=== PATIENT | female | born 1960 | race Caucasian/White ===

== ENCOUNTER 2018-08-07 08:40 | Outpatient (CLI) | payer OTHER, SELFPAY | END 2018-08-07 09:00 | PROVIDERS: PCP Nurse Practitioner Family; Visit Provider Internal Medicine Interventional Cardiology | DX: R55 Syncope and collapse (principal); R07.9 Chest pain, unspecified; I48.91 Unspecified atrial fibrillation; I10 Essential (primary) hypertension | CPT/HCPCS: 93005; 93010 ==

== ENCOUNTER 2018-08-09 09:13 | Outpatient (CLI) | payer OTHER, SELFPAY ==
[2018-08-09 12:12] LABS: ALT 31 U/L (12-78); AST 25 U/L (15-37); Albumin 3.4 g/dL (3.4-5.0); Alkaline Phosphatase 93 U/L (46-116); Bilirubin, Total 0.7 mg/dL (0.2-1.0); Cholesterol 149 mg/dL (50-200); HDL Cholesterol 50 mg/dL (40-60); LDL CHOLESTEROL 79 mg/dL (<100); TSH (W/Ref FT4) 2.18 uIU/mL (0.358-3.74); Total Protein 6.3 g/dL (6.4-8.2); Triglyceride 125 mg/dL (30-150)
[2018-08-09 12:18] LABS: Troponin I < 0.02 ng/mL (0.00-0.06)
[2018-08-09 12:29] LABS: Bilirubin, Direct 0.13 mg/dL (0.00-0.20)
== END 2018-08-09 09:33 ==
PROVIDERS: PCP Nurse Practitioner Family; Visit Provider Internal Medicine Interventional Cardiology
DX: R55 Syncope and collapse (principal); I48.91 Unspecified atrial fibrillation; R07.9 Chest pain, unspecified; I10 Essential (primary) hypertension
CPT/HCPCS: 36415; 80061; 80076; 83721; 84443; 84484

== ENCOUNTER 2018-08-16 00:02 | Outpatient (CLI) | payer OTHER, SELFPAY ==
--- NOTE | 2018-08-16 06:33 | MERGEMPI_ITS ---
*[facility]* *[facility]* [address] [place] [address] Myocardial Perfusion Imaging - SPECT Kaden protocol Date of study: 08/16/2018 *PATIENT PRESENTATION* Height: 152.4cm (60in) Blood Pressure: Weight: 84.5kg (186lb) BSA: 1.94m^2 Referring physician: Arun Bustamante Ordering physician: Trent Rios MD Impressions: - Normal myocardial perfusion and contraction after maximal exercise. - Exercise-induced hypertension. Summary: 1. Myocardial perfusion imaging: No myocardial perfusion defects noted. 2. The calculated left ventricular ejection fraction after stress: > 70%. LV global systolic function is normal. No left ventricular regional motion abnormality. 3. Stress ECG conclusions: The stress ECG is negative. The sensitivity of this test is limited by significant motion artifact. 4. Stress: The target heart rate was achieved. The heart rate response to stress is exaggerated. There is a normal resting blood pressure with a hypertensive response to stress. The patient experienced no chest pain during stress. Exercise capacity is average for age (7 METS). Indication: R07.9. History: Patient's presenting symptoms: asymptomatic. Patient's presenting symptoms: asymptomatic. REASON FOR VISIT: EXPERIENCING CHEST DISCOMFORT DESCRIBED WEIRD SENSATION. ONSET AT REST, MAY LAST MINUTES OR HOURS. CHEST DISCOMFORT LAST OCCURED 08/07/18. PATIENT REPORTS AN INCREASED AWARENESS OF HEART SENSATIONS. REPORTS INCREASE IN SHORTNESS OF BREATH DURING ACTIVITY THAT NORMALLY WOULD NOT PRODUCE DYSPNEA, SUCH WALKING. HAS BEEN EXPERIENCING AN INCREASE IN TACHYCARDIA/PALPATIONS. 08/07/18 EKG SHOWS SINUS RHYTHM 84 BPM. ZIO PATCH SYSTEM ANALYST 04/03/2017: BASELINE SINUS RHYTHM. SIX BURST SVT, HR MAX 210 BPM, LONGEST 22.5 SEC. RARE PAC/PVC. STRESS TEST 04/22/2005: NO EKG CHANGES. NORMAL PERFUSION. LVEF 67%. NEGATIVE ISCHEMIA. PAST MEDICAL HISTORY: HYPERTENSION. HYPERLIPIDEMIA. UROLITHIASIS. IBS. ASTHMA. 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 ATRIAL FIBRILLATION/SVT (UNCLEAR HISTORY). GERD. FAMILY HISTORY: SISTER - CEREBROVASCULAR ACCIDENT AND HYPERTENSION. SMOKING STATUS: NEVER. EXERCISE ROUTINE: NONE. Risk factors: Hypertension. Dyslipidemia. Cholesterol: 149mg/dl. HDL: 50mg/dl. LDL: 79mg/dl. Triglycerides: 125mg/dl. ALLERGIES: DILTIAZEM HCL, CODEINE, ESCITALOPRAM OXALATEMEPERIDINE HCL, MORPHINE. MEDICATIONS: ALBUTEROL SULFATE INHALER, PRN. ATORVASTATIN 40MG, DAILY. HYDROCHLOROTHIAZIDE 25MG, DAILY. POTASSIUM CITRATE 30MEQ, BID. MAGNESIUM OXIDE 400MG, DAILY. STARTING APIXABAN 5MG, BID FOLLOWING TESTING. Imaging Technique: Protocol: Kaden protocol. Acquisition: Gated SPECT; 1 day - rest/stress. The patient was imaged in the supine position. Attenuation correction used. Isotope administration: - Rest. Tc[99m]-sestamibi. Dose: 9.9mCi. Injection time: 08:40 AM. Injection to stress time: 00:45. - Stress. Tc[99m]-sestamibi. Dose: 31.4mCi. Injection time: 10:22 AM. 1-2 min before end of exercise Baseline ECG: SINUS RHYTHM. HEART RATE 71 BPM. Normal ECG. Stress protocol: + +---+ + !Stage !HR !BP (mmHg) ! + +---+ + !Baseline supine !71 !142/82 (102) ! + +---+ + !Baseline standing !91 !152/92 (112) ! + +---+ + !Stage I; 1.7mph, 10degrees; 3 min !133!162/102 (122)! + +---+ + !Stage II; 2.5mph, 12degrees; 3 min!160!192/106 (135)! + +---+ + !Peak stress !169! ! + +---+ + !Recovery; 1 min !136!210/82 (125) ! + +---+ + !Recovery; 3 min !100!172/94 (120) ! + +---+ + !Recovery; 6 min !90 !142/86 (105) ! + +---+ + * Stress results: Maximal heart rate during stress was 169bpm (106% of maximal predicted heart rate). The maximal predicted heart rate was 160bpm. The target heart rate was achieved. The heart rate response to stress is exaggerated. There is a normal resting blood pressure with a hypertensive response to stress. The rate-pressure product for the peak heart rate and blood pressure was 36395bh Hg/min. The patient experienced no chest pain during stress. Exercise capacity is average for age (7 METS). Stress ECG: MPI TREADMILL STRESS TEST ENDED IN 6MIN 30SEC DUE TO SHORTNESS OF BREATH AND FATIGUE. APPROPRIATE HEART RATE AND BLOOD PRESSURE RESPONSE TO EXERCISE. MAXIMAL HR 169 BPM, 105% OF TARGET. APPROXIMATE METS ACHIEVED 7.81. NO ECTOPY NOTED. NO ANGINA REPORTED. 3/10 DULL PAIN BETWEEN SHOULDER BLADES REPORTED DURING MINUTE 2 OF RECOVERY, RESOLVED BY MINUTE 4 OF RECOVERY. UPWARD SLOPING ST SEGMENT DEPRESSION NOTED IN LEADS V4 AND V5 AT END OF EXERCISE PERIOD, RESOLVED BY MINUTE 2 OF RECOVERY. AVERAGE FUNCTIONAL CAPACITY. The stress ECG is negative. The sensitivity of this test is limited by significant motion artifact. Lake treadmill score: 7. This score predicts a low risk of cardiac events. Myocardial perfusion: Imaging information: gated. The image quality was good. Left ventricular size is normal. No myocardial perfusion defects noted. Ventricular Function (Wall Motion): The calculated left ventricular ejection fraction after stress: > 70%. LV global systolic function is normal. No left ventricular regional motion abnormality. Study data: Arun Bustamante MD supervised and was readily available during the procedure. This study was interpreted by [facility]. Study status: Routine. Consent: The risks, benefits, and alternatives to the procedure were explained to the patient and informed consent was obtained. Procedure: Initial setup. A baseline ECG was recorded. Surface ECG leads and manual cuff blood pressure measurements were monitored. Heart sounds: Normal. Lung sounds: Normal. Treadmill exercise testing was performed using the Kaden protocol. Study completion: All catheters inserted during the procedure were removed. The patient tolerated the procedure well and was discharged from the lab. Discharge: The patient left the laboratory in stable condition. Birthdate: Patient birthdate: 1960. Sex: Gender: female. Study date: Study date: 08/16/2018. Study time: 06:33 AM. Signature Documentation: - The imaging portion of this study was interpreted by Nuclear Invertebrate Paleontologist Arun Bustamante MD. - The imaging portion of this study was interpreted by Nuclear Radiologist Farzad Yan MD. - The Stress ECG portion of this study was interpreted by Arun Bustamante MD. Electronically signed by Arun Bustamante 08/16/2018 13:44
== END 2018-08-16 00:22 ==
PROVIDERS: PCP Nurse Practitioner Family; Visit Provider Internal Medicine Interventional Cardiology
DX: R07.9 Chest pain, unspecified (principal); R03.0 Elevated blood-pressure reading, without diagnosis of hypertension; R06.02 Shortness of breath; R00.2 Palpitations; I10 Essential (primary) hypertension; E78.5 Hyperlipidemia, unspecified; K21.9 Gastro-esophageal reflux disease without esophagitis
CPT/HCPCS: 78452; 93017

== ENCOUNTER 2018-08-28 09:48 | Outpatient (CLI) | payer OTHER, SELFPAY | END 2018-08-28 10:08 | PROVIDERS: PCP Nurse Practitioner Family; Visit Provider Internal Medicine Interventional Cardiology | DX: I48.0 Paroxysmal atrial fibrillation (principal); R07.9 Chest pain, unspecified; R55 Syncope and collapse; I47.1 Supraventricular tachycardia | CPT/HCPCS: 93005; 93010 ==

== ENCOUNTER 2018-08-31 03:05 | Outpatient (CLI) | payer OTHER, SELFPAY ==
--- NOTE | 2018-09-25 16:36 | ZIOP_ITS ---
DATE OF DICTATION: September 25, [address]: 13 days, 2 hours, August [id number] Baseline rhythm sinus. Rare single PAC. Nine bursts of SVT, longest 10-beat duration, fastest 150 bpm. Rare single PVC, less than 1% of total beat. No VT. No bradycardia or block. Four triggered events occurring during sinus rhythm or SVT. Heart rates up to 150 bpm. Three symptomatic episodes. Fluttering, racing, sharp pain noted during sinus rhythm 58-80 bpm. Average heart rate sinus 77 bpm, range 47-151 bpm.
== END 2018-08-31 03:25 ==
PROVIDERS: PCP Nurse Practitioner Family; Visit Provider Internal Medicine Interventional Cardiology
DX: I48.91 Unspecified atrial fibrillation (principal); I47.1 Supraventricular tachycardia
CPT/HCPCS: 93225

== ENCOUNTER 2018-09-18 00:24 | Emergency (ER) | payer OTHER, SELFPAY ==
[2018-09-18] VITALS (33 sets, daily range): BP systolic 131–165; BP diastolic 66–107; PULSE 69–101; RESP 11–24; TEMP 36.8–37; O2SAT 94–99
--- NOTE | 2018-09-18 00:41 | ED.GENADUL_ITS ---
Discharge Plan Disposition Patient Disposition: HOME Condition: Good Discharge Details Chief Complaint: Palpitatns Clinical Impression: Palpitations, Hypokalemia Primary Care Provider: Makenzie Mccauley ED Provider: Lucy Mendez Home Meds and New Rx's Prescriptions: Continued magnesium oxide 400 mg capsule 400 mg PO DAILY RF: 0 potassium citrate 10 mEq (1,080 mg) tablet extended release 20 meq PO TID RF: 0 ALBUTEROL SULFATE HFA 8.5 GM HFA.AER.AD 2 puff Inhalation Q6H PRN RF: 0 tramadol 50 MG tablet 1 tab PO PRN PRNRF: 0 atorvastatin [Lipitor] 40 MG tablet 40 mg PO DAILY RF: 0 hydrochlorothiazide 25 MG tablet 25 mg PO QAM RF: 0 omeprazole 40 mg Capsule,Delayed Release(Dr/Ec) 40 mg PO DAILY RF: 0 Discharge Instructions Instructions: Palpitations (ED), Hypokalemia (ED) Additional Instructions: Return to the hospital tomorrow morning to have the heart monitor (zio patch) placed by respiratory therapy. Take your potassium citrate as directed when you have low potassium. Discuss with your primary care doctor or cardiology possibility of switching your hydrochlorothiazide to another medication due to your frequent low potassium. Folllow up with your scheduled appointment with Dr. Rios on 10/16/18. Return immediately to the emergency department with any worsening or new concerning symptoms. Discharge Data Discharge Date/Time-TO BE ENTERED AT DEPARTURE: 09/18/18 04:14 Discharge Physician: Lucy Mendez Medical Decision Making 58-year-old female with a history of hypertension, high cholesterol, IBS and asthma with a long-standing history of syncope and palpitations for several years who presents for palpitations that started 4 hours ago while driving. She denies any chest pain, shortness of breath, dizziness, or vomiting. She states the symptoms are improved at present. Pt does seem to admit to sensation of symptoms that correlate with PVCs on the monitor. Heart rate on arrival noted to be 80s and 90s. EKG notes a rate of 98, sinus, no acute ST elevation or depression. QTc 449. QRS 90. Patient has been followed by Dr. Rios for her history of chronic palpitations as well as presyncope and syncope which has been found to be likely neurocardiogenic in nature. She was most recently seen by Dr. Rios on August 28, 2018. She most recently had a stress test on 08/16/2018 which was negative for ischemia. She states she just had a heart monitor for the past 2 weeks which was removed 4 days ago. She states she has a scheduled appointment with Dr. Rios on 10/16/17. Blood pressure 140s/80s. Patient appears nontoxic and in no acute distress. Patient states she was advised to come to the emergency department by Dr. Rios if she develops any recurrence of her palpitations. Patient states her last syncopal episode was 1/2 years ago. Patient states her last episode of palpitations was one month ago. Will do a cardiac workup. Pt admits to driving 7 hours to [place] a few weeks ago but states she got out of the car every 2 hours to walk and she denies any chest pain, sob, leg pain or swelling, recent surgery, h/o cancer, and has no other dvt risk factors. 0120 --labs and imaging reviewed. Potassium 2.8. Troponin negative. D-dimer 568 and based on age adjusted cutoff, is within normal limits. Patient is taking hydrochlorothiazide which is likely the cause of her hypokalemia. Review of previous labs note that she has had hypokalemia in the past. Patient states she takes 4 tabs of potassium citrate daily but when her potassium is low increases to 6 tabs daily. Patient states she also tries to supplement potassium in her diet. Discussed the possibility of switching from hydrochlorothiazide, but she states that she takes this for her history of kidney stones and does not plan on stopping it. Will give an oral and IV dose of potassium, plan for recheck potassium and repeat troponin and plan for zio patch monitor on discharge. 0220 -- d/w Jodie from RT - do not place zio patch in the night - pt can return to the hospital tomorrow morning and have a zio patch placed. 0350 -- repeat K 3.4. Repeat trop negative. Pt feels good and she is requesting to go home. She is instructed to follow-up with her appointment with Dr. Rios on and return here immediately with any concerns. Medical Records Medical records reviewed: Yes I reviewed the patient's medical records. Imaging Data Radiologic Study: Radiologist's impression: XR Chest, 2 Views EXAM DATE/TIME: 09/18/2018 12:40 AM FINDINGS: Lungs: Unremarkable. No consolidation. Pleural space: Unremarkable. No pleural effusion. No pneumothorax. Heart/Mediastinum: Unremarkable. No cardiomegaly. Bones/joints: Disc osteophyte of the spine. IMPRESSION: No acute finding. Lab Data Lab results reviewed: Yes I reviewed the patient's lab results. Laboratory Tests Range/Units 09/18/18 09/18/18 09/18/18 00:37 00:37 00:37 WBC (4.4-10.8) k/cumm 7.64 RBC (4.00-5.20) m/cumm 4.94 Hgb (12.0-15.5) g/dL 14.4 Hct (36.0-46.0) % 41.9 MCV (80-95) fL 84.8 MCH (27.0-33.0) pg 29.1 MCHC (32.0-36.0) g/dL 34.4 RDW (11.7-14.6) % 12.8 Plt Count (130-400) x1000/uL 248 MPV (8.0-11.0) fL 10.5 Immature Gran % 0.1 Neutrophils % 66.4 Lymphocytes % 21.7 Monocytes % 8.9 Eosinophils % 2.5 Basophils % 0.4 Absolute Neutrophils (1.2-6.7) k/cumm 5.07 Absolute Lymphocytes (1.2-3.4) k/cumm 1.66 Absolute Monocytes (0.11-0.7) k/cumm 0.68 Absolute Eosinophils (0.0-0.7) k/cumm 0.19 Absolute Basophils (0.0-0.2) k/cumm 0.03 D-Dimer (<500) ng/mlFEU 568 H Sodium (136-145) mmol/L 142 Potassium (3.5-5.1) mmol/L 2.8 L* Chloride (98-107) mmol/L 102 Carbon Dioxide (21.0-32.0) mmol/L 31.2 Anion Gap (3-11) mmol/L 8.8 BUN (7-18) mg/dL 14 Creatinine (0.55-1.02) mg/dL 0.83 Estimated GFR/1.73 m2 (mL/min/1.73m2) >= 60.00 Glucose (70-100) mg/dL 106 H Calcium (8.5-10.1) mg/dL 9.7 Magnesium (1.8-2.4) mg/dL 1.8 Total Bilirubin (0.2-1.0) mg/dL 0.5 AST (15-37) U/L 26 ALT (12-78) U/L 36 Alkaline Phosphatase (46-116) U/L 109 Troponin I (0.00-0.06) ng/mL < 0.02 Total Protein (6.4-8.2) g/dL 7.4 Albumin (3.4-5.0) g/dL 3.9 Range/Units 09/18/18 03:28 WBC (4.4-10.8) k/cumm RBC (4.00-5.20) m/cumm Hgb (12.0-15.5) g/dL Hct (36.0-46.0) % MCV (80-95) fL MCH (27.0-33.0) pg MCHC (32.0-36.0) g/dL RDW (11.7-14.6) % Plt Count (130-400) x1000/uL MPV (8.0-11.0) fL Immature Gran % Neutrophils % Lymphocytes % Monocytes % Eosinophils % Basophils % Absolute Neutrophils (1.2-6.7) k/cumm Absolute Lymphocytes (1.2-3.4) k/cumm Absolute Monocytes (0.11-0.7) k/cumm Absolute Eosinophils (0.0-0.7) k/cumm Absolute Basophils (0.0-0.2) k/cumm D-Dimer (<500) ng/mlFEU Sodium (136-145) mmol/L 144 Potassium (3.5-5.1) mmol/L 3.4 L Chloride (98-107) mmol/L 107 Carbon Dioxide (21.0-32.0) mmol/L 32.1 H Anion Gap (3-11) mmol/L 4.9 BUN (7-18) mg/dL 12 Creatinine (0.55-1.02) mg/dL 0.70 Estimated GFR/1.73 m2 (mL/min/1.73m2) >= 60.00 Glucose (70-100) mg/dL 100 Calcium (8.5-10.1) mg/dL 8.4 L Magnesium (1.8-2.4) mg/dL Total Bilirubin (0.2-1.0) mg/dL AST (15-37) U/L ALT (12-78) U/L Alkaline Phosphatase (46-116) U/L Troponin I (0.00-0.06) ng/mL 0.02 Total Protein (6.4-8.2) g/dL Albumin (3.4-5.0) g/dL ECG Data Attestation: I personally reviewed and interpreted this ECG (s) as follows: Interpretation: 0031 -- 98bpm. Sinus. No acute ST elevation or depression. QTc 449. QRS 90. HPI General Mode of arrival: ambulatory . Date/Time Provider Initiated Documentation: 09/18/18 00:31 . Limitations to Documentation: no limitations . Information obtained by: patient . HPI Narrative: Patient is a 58-year-old female who presents with palpitations that started 4 hours prior to arrival. States she was driving a car when she felt what she describes as a skip, jump, and a flutter in the center of her chest. She states she was wearing a fit bit and it appeared that her heart was alternating between 90s and 110s. She states she feels much better now and that the symptoms are occurring less frequently. She denies any chest pain, shortness of breath, dizziness, nausea or vomiting. Patient has a long-standing history of palpitations for which she has seen cardiology for several years. She has a long-standing history of syncope over the past 35 years for which she has had multiple cardiac workups including heart monitor, stress test, tilt table test, echo, sleep study. She also had a history of atrial fibrillation found on ER evaluation in 2004 but not since then and has had cardiac monitors which have been negative for fibrillation since then. She denies any recent new medications. She states she drank tea this evening but denies any other new caffeine. She denies any other recent illnesses, fever, vomiting or diarrhea. Related Data Home Medications Medication Instructions Recorded Confirmed Albuterol Sulfate Hfa 2 puff INHALATION Q6H PRN puff NS 12/22/12 09/18/18 tramadol 1 tab PO PRN PRN 08/28/15 09/18/18 atorvastatin [Lipitor] 40 mg PO DAILY 04/03/17 09/18/18 hydrochlorothiazide 25 mg PO QAM tab 04/04/17 09/18/18 magnesium oxide 400 mg capsule 400 mg PO DAILY cap 08/07/18 09/18/18 potassium citrate ER 10 mEq (1,080 20 meq PO TID tab 08/28/18 09/18/18 mg) tablet,extended release omeprazole 40 mg PO DAILY 09/18/18 09/18/18 Previous Rx's Medication Instructions Recorded hydrochlorothiazide 25 mg PO QAM tab 04/04/17 Allergies Allergy/AdvReac Type Severity Reaction Status Date / Time diltiazem HCl [From Cardizem] Allergy Severe Anaphylaxsi Unverified 09/18/18 00:40 s codeine [Codeine] AdvReac Mild nausea.vomi Unverified 09/18/18 00:40 ting escitalopram oxalate AdvReac Mild nausea, Unverified 09/18/18 00:40 [From Lexapro] vomiting meperidine HCl [From Demerol] AdvReac Mild nausea, Unverified 09/18/18 00:40 vomiting morphine AdvReac Mild nausea, Unverified 09/18/18 00:40 vomiting General Stated Complaint: Palpitatns ROSA: 3 Review of Systems Review of Systems All systems reviewed & are unremarkable except as noted in HPI and below Constitutional Reports as per HPI, Denies chills and Denies fever(s) Eyes Denies blurry vision ENT Denies dizziness, Denies sore throat and Denies throat swelling Cardiovascular Denies chest pain, Reports palpitations and Denies dyspnea Respiratory Denies dyspnea Gastrointestinal Denies abdominal pain, Denies diarrhea and Denies vomiting Genitourinary Denies hematuria and Denies dysuria Musculoskeletal Denies back pain and Denies numbness Integumentary/Breasts Denies lesions and Denies rash Neurologic Denies dizziness and Denies numbness Endocrine Reports palpitations Allergic/Immunologic Denies throat swelling [facility] Medical History Hyperlipemia (Acute) Asthma (Chronic) HTN (hypertension) (Chronic) Irritable bowel syndrome (Chronic) Surgical History H/O section (Chronic) History of tonsillectomy (Chronic) Hx of cholecystectomy (Chronic) Social History Smoking/Tobacco Use Status: Never alcohol intake: never substance use type: does not use Exam Const General: cooperative, healthy appearing and no acute distress HENMT Head: normal to inspection Face and sinus: normal facial exam Eyes General: appearance normal, both eyes and all related structures Pupils: PERRL EOM: EOM intact bilaterally Neck Neck: normal visual inspection and No submandibular swelling Lymphatic: no lymphadenopathy noted Chest Chest: normal inspection of the chest and no tenderness Resp Effort & Inspection: normal respiratory effort and able to speak in complete sentences Auscultation: clear to auscultation bilaterally Cardio Rate: regular rate Rhythm: regular rhythm GI Inspection: normal to inspection Palpation: soft, not firm, not rigid and nontender Auscultation: normal bowel sounds Skin General skin exam: no rashes or lesions noted Neuro General: alert, awake and oriented x3 Cognition: normal cognition Speech: speech normal Motor: muscle tone normal throughout Sensory Exam: no sensory deficits noted Extrem General: normal to inspection, full ROM, normal capillary refill, no calf tenderness bilaterally and no edema Psych Appearance: grossly normal Mental Status: mental status grossly normal Speech and Movement: speech and movement normal Affect: normal affect Course Vital Signs Temperature 98.6 F 09/18/18 00:36 Pulse 96 H 09/18/18 00:36 Respiratory Rate 18 18 00:36 Blood Pressure 148/98 H 09/18/18 00:36 Pulse Oximetry 98 09/18/18 00:36 Temperature 98.6 F 09/18/18 00:36 Temperature Source Skin 09/18/18 00:36 Pulse 96 H 09/18/18 00:36 Respiratory Rate 18 18 00:36 Blood Pressure 148/98 H 09/18/18 00:36 Blood Pressure Position Supine 09/18/18 00:36 Pulse Oximetry 98 09/18/18 00:36 Oxygen Delivery Method Room Air 09/18/18 00:36 Oxygen Flow Rate 0 09/18/18 00:36 Pain Level 0 09/18/18 00:36
[2018-09-18 00:57] LABS: Abs Immature Grans 0.01 k/cumm (0.0-0.09); Absolute Basophil Count 0.03 k/cumm (0.0-0.2); Absolute Eosinophil Count 0.19 k/cumm (0.0-0.7); Absolute Lymphocyte Count 1.66 k/cumm (1.2-3.4); Absolute Monocyte Count 0.68 k/cumm (0.11-0.7); Absolute Neutrophil Count 5.07 k/cumm (1.2-6.7); Basophils % 0.4; Eosinophils % 2.5; HCT 41.9 % (36.0-46.0); HGB 14.4 g/dL (12.0-15.5); Immature Grans % 0.1; Lymphocytes % 21.7; Mean Corp. HGB Concentration 34.4 g/dL (32.0-36.0); Mean Corpuscular Hemoglobin 29.1 pg (27.0-33.0); Mean Corpuscular Volume 84.8 fL (80-95); Mean Platelet Volume 10.5 fL (8.0-11.0); Monocytes % 8.9; Neutrophils % 66.4; Platelet Count 248 x1000/uL (130-400); RBC 4.94 m/cumm (4.00-5.20); RBC Distribution Width 12.8 % (11.7-14.6); White Blood Cell Count 7.64 k/cumm (4.4-10.8)
[2018-09-18] MEDS: Normal Saline 1,000 ML 1000 ML IV (01:08)
--- NOTE | 2018-09-18 01:10 | DI.RAD_ITS ---
SYMPTOMS/DIAGNOSIS: PALPITATIONS, ? ACUTE DISEASE PA AND LATERAL CHEST: The heart is normal in size. The lungs are clear. The mediastinal structures and pleura appear intact. CONCLUSION: Normal chest.
[2018-09-18 01:11] LABS: AST 26 U/L (15-37); Albumin 3.9 g/dL (3.4-5.0); Alkaline Phosphatase 109 U/L (46-116); Anion Gap 8.8 mmol/L (3-11); BUN 14 mg/dL (7-18); Bilirubin, Total 0.5 mg/dL (0.2-1.0); CO2 31.2 mmol/L (21.0-32.0); CREATININE 0.83 mg/dL (0.55-1.02); Calcium 9.7 mg/dL (8.5-10.1); Chloride 102 mmol/L (98-107); Glucose 106 mg/dL (70-100); Magnesium 1.8 mg/dL (1.8-2.4); Sodium 142 mmol/L (136-145); Total Protein 7.4 g/dL (6.4-8.2)
[2018-09-18 01:12] LABS: Troponin I < 0.02 ng/mL (0.00-0.06)
[2018-09-18 01:14] LABS: Potassium 2.8 mmol/L (3.5-5.1)
[2018-09-18 01:24] LABS: ALT 36 U/L (12-78)
[2018-09-18 01:27] LABS: D-Dimer 568 ng/mlFEU (<500)
[2018-09-18] MEDS: POTASSIUM CHLORIDE 20 MEQ/100 ML BAG 50 MEQ IVPB (01:30)
[2018-09-18] MEDS: Potassium Chloride 20 MEQ TABCR 40 MEQ PO (01:31)
--- NOTE | 2018-09-18 01:34 | DI.VRAD_ITS ---
EXAM: XR Chest, 2 Views EXAM DATE/TIME: 09/18/2018 12:40 AM CLINICAL HISTORY: 58 years old, female; Signs and symptoms; Other: Palpitations; Patient HX: Palpitations, R/O acute disease TECHNIQUE: XR of the chest, 2 views. COMPARISON: CR CHEST 2 VIEWS PA,LAT 04/03/2017 12:43 PM FINDINGS: Lungs: Unremarkable. No consolidation. Pleural space: Unremarkable. No pleural effusion. No pneumothorax. Heart/Mediastinum: Unremarkable. No cardiomegaly. Bones/joints: Disc osteophyte of the spine. IMPRESSION: No acute finding. Dictated and Authenticated by: Trent Painter MD. Ordering:MEJIA Ayala MD
[2018-09-18 03:50] LABS: Anion Gap 4.9 mmol/L (3-11); BUN 12 mg/dL (7-18); CO2 32.1 mmol/L (21.0-32.0); Calcium 8.4 mg/dL (8.5-10.1); Chloride 107 mmol/L (98-107); Glucose 100 mg/dL (70-100); Potassium 3.4 mmol/L (3.5-5.1); Sodium 144 mmol/L (136-145); Troponin I 0.02 ng/mL (0.00-0.06)
== END 2018-09-18 04:14 | disposition home or self-care (01) ==
PROVIDERS: Emergency Provider Physician Assistant; PCP Nurse Practitioner Family
DX: R00.2 Palpitations (principal); E87.6 Hypokalemia; I10 Essential (primary) hypertension
CPT/HCPCS: 36415; 80048; 80053; 93005; 96361; 96365; 96366; 99285; 71046; 83735; 84484; 85025; 85379; 93010; J3480

== ENCOUNTER 2018-09-18 11:14 | Outpatient (CLI) | payer OTHER, SELFPAY ==
--- NOTE | 2018-10-10 15:26 | ZIOP_ITS ---
DATE OF DICTATION: October 10, 2018 STUDY INDICATIONS: Paroxysmal atrial fibrillation. REQUESTING PROVIDER: Trent Rios M.D. FINDINGS: The patient was monitored for 13 days and 9 hours. The predominant underlying rhythm was sinus rhythm. Average heart rate in sinus rhythm 79 bpm, range 47 to 155 bpm. There was rare ectopy, less than 1% PAC's and less than 1% PVC's. There were 13 episodes of supraventricular tachycardia, average heart rate 128 bpm, range 83 to 179 bpm. The longest episode lasted 9 seconds with an average heart rate of 149 bpm. There were no pauses greater than 3 seconds. There was no higher degree heart block. There were 16 patient events. One event correlated with PVC and one event with PAC. All other events did not correlate with arrhythmias. FINAL INTERPRETATION: Bursts of supraventricular tachycardia, asymptomatic.
== END 2018-09-18 11:34 ==
PROVIDERS: PCP Nurse Practitioner Family; Visit Provider Nurse Practitioner Family
DX: I48.0 Paroxysmal atrial fibrillation (principal); I47.1 Supraventricular tachycardia
CPT/HCPCS: 93225

== ENCOUNTER 2018-11-20 09:50 | Outpatient (REF) | payer OTHER, SELFPAY ==
[2018-11-20 14:08] LABS: Anion Gap 8.7 mmol/L (3-11); CO2 31.3 mmol/L (21.0-32.0); Chloride 106 mmol/L (98-107); Magnesium 1.9 mg/dL (1.8-2.4); Potassium 3.1 mmol/L (3.5-5.1); Sodium 146 mmol/L (136-145)
== END 2018-11-20 10:10 ==
LOC: NCHCN 09:50
PROVIDERS: PCP Nurse Practitioner Family; Visit Provider Nurse Practitioner Family
DX: E78.5 Hyperlipidemia, unspecified (principal); E83.42 Hypomagnesemia; E87.6 Hypokalemia
CPT/HCPCS: 80051; 83735

== ENCOUNTER 2018-12-25 08:44 | Outpatient (CLI) | payer OTHER, SELFPAY | END 2018-12-25 09:04 | PROVIDERS: PCP Nurse Practitioner Family; Visit Provider Internal Medicine Interventional Cardiology | DX: R07.9 Chest pain, unspecified (principal); I48.91 Unspecified atrial fibrillation; R55 Syncope and collapse | CPT/HCPCS: 93005; 93010 ==

== ENCOUNTER 2019-02-15 10:32 | Outpatient (REF) | payer OTHER, SELFPAY ==
[2019-02-15 20:19] LABS: Anion Gap 9.4 mmol/L (3-11); BUN 20 mg/dL (7-18); CO2 29.6 mmol/L (21.0-32.0); CREATININE 0.77 mg/dL (0.55-1.02); Calcium 9.1 mg/dL (8.5-10.1); Chloride 104 mmol/L (98-107); Glucose 99 mg/dL (70-100); Magnesium 1.8 mg/dL (1.8-2.4); Potassium 3.9 mmol/L (3.5-5.1); Sodium 143 mmol/L (136-145)
== END 2019-02-15 10:52 ==
LOC: NCHCN 10:32
PROVIDERS: PCP Nurse Practitioner Family; Visit Provider Nurse Practitioner Family
DX: E83.42 Hypomagnesemia (principal); E87.6 Hypokalemia
CPT/HCPCS: 80048; 83735

== ENCOUNTER 2020-05-09 00:57 | Outpatient (CLI) | payer OTHER, SELFPAY ==
--- NOTE | 2020-06-03 09:20 | ZIOP_ITS ---
Date of service: 06/03/20 Time of Service: 09:20 ZIO Patch Program Director/Music Director Referring Provider:: Albert Indications:: SVT Note: There is a 2-week ZIO patch ordered for indication of supraventricular tachycardia. ?The patient was in normal sinus rhythm for the majority of the recording with an average heart rate of 70 bpm. ?There were 17 episodes of supraventricular tachycardia with the longest lasting 20 beats at a peak rate of 167 bpm. ?There were no episodes of atrial fibrillation, no pauses greater than 3 seconds and no evidence of high degree heart block. ?There were no episodes of ventricular tachycardia. ?There were rare supraventricular and ventricular ectopic beats. ?Patient triggered events were associated with sinus rhythm, supraventricular ectopic beats as well as SVT.
== END 2020-05-09 01:17 ==
PROVIDERS: PCP Nurse Practitioner Family; Visit Provider Internal Medicine Cardiovascular Disease
DX: I47.1 Supraventricular tachycardia (principal); I49.3 Ventricular premature depolarization
CPT/HCPCS: 0296T

== ENCOUNTER 2020-07-29 09:55 | Outpatient (REF) | payer OTHER, SELFPAY ==
--- NOTE | 2020-07-29 08:59 | PAPFT_PTH ---
PATIENT: Catherine Lind LOC: [facility]#:[id number] AGE/SX: 60/F ROOM: RE07/29/[address]: Jackie Victoria : 1960 BED: DIS: 07/29/2020 SPEC #: [id number] RECD: 07/29/20 17:46 STATUS: NICK STANTON #: [id number] CHARITY: 07/29/20 08:[address]: Jackie Victoria DEPT: [facility] Cytology RECD BY: Anna Gutierrez Tissues: 1 - CX/ENDOCX FOR PAP SMEARS Procedures: PAP THIN PREP/[facility] Screening Comments: [id number] ([place])
[2020-07-29 18:46] LABS: HCT 40.3 % (36.0-46.0); HGB 13.1 g/dL (11.2-15.7); MCH 29.2 pg (27.0-33.0); MCHC 32.5 % (32.0-36.0); MCV 89.8 fL (80-95); MPV 11.2 fL (8.0-11.0); Platelet Count 225 10^3/uL (130-400); RBC 4.49 10^6/uL (3.93-5.22); RDW 12.4 % (11.7-14.6); RDW-SD 40.6 fL; WBC 4.46 10^3/uL (4.4-10.8)
[2020-07-29 19:07] LABS: BUN 18 mg/dL (7-18); CREATININE 0.97 mg/dL (0.55-1.02); Calcium 8.8 mg/dL (8.5-10.1); Calculated LDL 96 mg/dL (<100); Chloride 107 mmol/L (98-107); Cholesterol 168 mg/dL (<200); Estimated GFR 58.19 (mL/min/1.73m2); Glucose 105 mg/dL (74-106); HDL Cholesterol 47 mg/dL (40-60); Sodium 142 mmol/L (136-145); TSH (W/Ref FT4) 3.65 uIU/mL (0.36-3.74); Triglyceride 125 mg/dL (<150)
[2020-07-31 04:42] LABS: Vitamin D 25 Total 6.8 ng/ml (30-100)
== END 2020-07-29 10:15 ==
LOC: NCHCN 09:55
PROVIDERS: PCP Nurse Practitioner Family; Visit Provider Nurse Practitioner Family
DX: E83.42 Hypomagnesemia (principal); E78.5 Hyperlipidemia, unspecified; E87.6 Hypokalemia; R53.83 Other fatigue; Z00.00 Encounter for general adult medical examination without abnormal findings; Z12.4 Encounter for screening for malignant neoplasm of cervix; Z11.51 Encounter for screening for human papillomavirus (HPV)
CPT/HCPCS: 80048; 80061; 82306; 85027; 88142; 84443

== ENCOUNTER 2020-08-28 01:11 | Outpatient (CLI) | payer OTHER, SELFPAY ==
--- NOTE | 2020-08-28 08:45 | DI.MAMMO_ITS ---
EXAM: MG MAMMO SCREENING CLINICAL HISTORY: SCREENING,Z12.39. TECHNIQUE: Bilateral full field digital CC and MLO mammographic images were obtained with 3D tomosyn thesis and utilizing computer aided detection (CAD). COMPARISON: Prior mammograms dating back to 2011, the most recent being May 2015. FINDINGS: There are no CAD designations. There are no new dominant masses nor malignant appearing microcalcification groups. There is no new architectural distortion nor skin thickening-retraction. IMPRESSION: No radiographic evidence of malignancy. BI-RADS Category 1 - Negative Breast Density - Category B - Scattered areas of fibroglandular density Breast density Category C or D implies that the patient has dense breast tissue. Dense breast tissue can make it harder to find cancer on a mammogram. Dense breast tissue is also associated with an incr eased risk of breast cancer. This information about the result of the mammogram report was provided to the patient to raise their awareness. Use this report when you speak with the patient about their risks for breast cancer, which includes their family history. At that time, you may recommend additional screening tests (Ultrasoun d or MRI) as these tests may add significant information. A negative radiographic report should not delay biopsy if a dominant or clinically suspicious mass is present. Up to ten percent of cancers are not identified on mammography. A negative report may reinforce clinical impression. Adenosis and dense breasts may obscure an underlying neoplasm. False positive reports average 6 to 10%. Patient will receive a letter notifying them of these results.
== END 2020-08-28 01:31 ==
PROVIDERS: PCP Nurse Practitioner Family; Visit Provider Nurse Practitioner Family
DX: Z12.31 Encounter for screening mammogram for malignant neoplasm of breast (principal)
CPT/HCPCS: 77063; 77067

== ENCOUNTER 2020-09-18 00:06 | Outpatient (CLI) | payer OTHER, SELFPAY ==
--- NOTE | 2020-09-18 | DI.DEXA_ITS ---
EXAM: XR DEXA BONE DENSITY W/WO TONY CLINICAL HISTORY: OSTEOPENIA,M85.80 TECHNIQUE: COMPARISON: Comparison examination 07/10/2015. FINDINGS: Lateral Spine Image: Unremarkable. No compression deformities identified. Left hip: Total T-Score: -1.2. This compares with -0.8 on the prior examination. Total Z-Score: -0.1 T- and Z-scores: Findings consistent with osteopenia and increased fracture risk. Lumbar Spine: Total T-Score: -0.9. This compares with -0.8 on the prior examination. Total Z-Score: 0.7 T- and Z-scores: Within normal limits. IMPRESSION: No evidence of osteoporosis.
== END 2020-09-18 00:26 ==
PROVIDERS: PCP Nurse Practitioner Family; Visit Provider Nurse Practitioner Family
DX: M85.88 Other specified disorders of bone density and structure, other site (principal)
CPT/HCPCS: 77080

== ENCOUNTER 2021-10-08 19:09 | Outpatient (REF) | payer OTHER, SELFPAY ==
[2021-10-08 19:49] LABS: Anion Gap 6.9 mmol/L (3-11); BUN 15 mg/dL (7-18); CO2 30.1 mmol/L (21.0-32.0); CREATININE 0.8 mg/dL (0.55-1.02); Calcium 9.3 mg/dL (8.5-10.1); Chloride 104 mmol/L (98-107); Glucose 135 mg/dL (74-106); Magnesium 1.7 mg/dL (1.8-2.4); Potassium 3.8 mmol/L (3.5-5.1); Sodium 141 mmol/L (136-145)
== END 2021-10-08 19:10 | disposition home or self-care (01) ==
LOC: LBN 19:09
PROVIDERS: PCP Nurse Practitioner Family; Visit Provider Nurse Practitioner Family
DX: E55.9 Vitamin D deficiency, unspecified (principal); E87.6 Hypokalemia; E83.42 Hypomagnesemia
CPT/HCPCS: 80048; 82306; 83735

== ENCOUNTER 2022-05-06 10:21 | Outpatient (REF) | payer OTHER, SELFPAY ==
[2022-05-06 14:53] LABS: HCT 42.1 % (36.0-46.0); HGB 14.2 g/dL (11.2-15.7); MCH 29.3 pg (27.0-33.0); MCHC 33.7 % (32.0-36.0); MCV 87 fL (80-95); MPV 11.5 fL (8.0-11.0); Platelet Count 293 10^3/uL (130-400); RBC 4.85 10^6/uL (3.93-5.22); RDW 12.5 % (11.7-14.6); WBC 6.89 10^3/uL (4.4-10.8)
[2022-05-06 15:14] LABS: Anion Gap 7.1 mmol/L (3-11); BUN 15 mg/dL (7-18); CO2 33.9 mmol/L (21.0-32.0); CREATININE 0.9 mg/dL (0.55-1.02); Calcium 10.1 mg/dL (8.5-10.1); Calculated LDL 76 mg/dL (<100); Chloride 103 mmol/L (98-107); Cholesterol 145 mg/dL (<200); Glucose 109 mg/dL (74-106); HDL Cholesterol 43 mg/dL (40-60); Magnesium 1.7 mg/dL (1.8-2.4); Potassium 3.9 mmol/L (3.5-5.1); Sodium 144 mmol/L (136-145); Triglyceride 132 mg/dL (<150)
== END 2022-05-06 10:22 | disposition home or self-care (01) ==
LOC: NCHCN 10:21
PROVIDERS: PCP Nurse Practitioner Family; Visit Provider Nurse Practitioner Family
DX: E83.42 Hypomagnesemia (principal); E55.9 Vitamin D deficiency, unspecified; E78.5 Hyperlipidemia, unspecified; I10 Essential (primary) hypertension
CPT/HCPCS: 80048; 80061; 85027; 83735

== ENCOUNTER 2022-06-14 09:28 | Outpatient (CLI) | payer OTHER, SELFPAY ==
--- NOTE | 2022-06-14 09:15 | RT.EKG_ITS ---
APPROVED REPORT Exam: Resting ECG Reason for Exam: SVT Patient Location: O HR:74 bpm ECG Measurements Heart Rate 74 AXIS IL 166 P 27 QRSd 86 QRS 4 QT 382 T 26 QTc 424 Conclusion Sinus rhythm...normal P axis, V-rate 50- 99 Normal Electrocardiogram
== END 2022-06-14 09:29 | disposition home or self-care (01) ==
LOC: DI.CARD 09:28
PROVIDERS: PCP Nurse Practitioner Family; Visit Provider Internal Medicine Cardiovascular Disease
DX: I47.1 Supraventricular tachycardia (principal)
CPT/HCPCS: 93010

== ENCOUNTER → 2023-06-16 09:51 | Outpatient (BNVA) | payer MEDICARE, SELFPAY | PROVIDERS: PCP Nurse Practitioner Family; Visit Provider Internal Medicine Cardiovascular Disease | DX: I10 Essential (primary) hypertension (principal); I47.1 Supraventricular tachycardia | CPT/HCPCS: 99213 ==

== ENCOUNTER 2023-10-20 11:10 | Outpatient (REF) | payer MEDICARE, SELFPAY ==
[2023-10-20 15:25] LABS: Abs Immature Grans 0.01 10^3/uL (0.0-0.06); Absolute Basophil Count 0.05 10^3/uL (0.0-0.2); Absolute Eosinophil Count 0.26 10^3/uL (0.0-0.7); Absolute Lymphocyte Count 1.55 10^3/uL (1.2-3.4); Absolute Monocyte Count 0.44 10^3/uL (0.1-0.8); Absolute Neutrophil Count 2.76 10^3/uL (1.2-6.7); Eosinophils % 5.1; HCT 41.4 % (36.0-46.0); HGB 13.8 g/dL (11.2-15.7); Immature Grans % 0.2; Lymphocytes % 30.6; MCH 28.9 pg (27.0-33.0); MCHC 33.3 % (32.0-36.0); MCV 87 fL (80-95); Monocytes % 8.7; Neutrophils % 54.4; Platelet Count 229 10^3/uL (130-400); RBC 4.77 10^6/uL (3.93-5.22); RDW 12.1 % (11.7-14.6); RDW-SD 39.1 fL; WBC 5.07 10^3/uL (4.4-10.8)
[2023-10-20 16:22] LABS: ALT 30 U/L (14-59); AST 20 U/L (15-37); Albumin 3.6 g/dL (3.4-5.0); Alkaline Phosphatase 102 U/L (46-116); Anion Gap 6.2 mmol/L (3-11); BUN 18 mg/dL (7-18); Bilirubin, Total 0.5 mg/dL (0.2-1.0); CO2 30.8 mmol/L (21.0-32.0); CREATININE 0.8 mg/dL (0.55-1.02); Calcium 9.2 mg/dL (8.5-10.1); Calculated LDL 97 mg/dL (<100); Chloride 106 mmol/L (98-107); Cholesterol 177 mg/dL (<200); Estimated GFR 81.72 (mL/min/1.73m2); Glucose 102 mg/dL (74-106); HDL Cholesterol 52 mg/dL (40-60); Potassium 4.1 mmol/L (3.5-5.1); Sodium 143 mmol/L (136-145); TSH 2.77 uIU/mL (0.36-3.74); Total Protein 6.5 g/dL (6.4-8.2); Triglyceride 142 mg/dL (<150); Vitamin B12 246 pg/mL (193-986); Vitamin D 25 Total 12.7 ng/mL (30-100)
== END 2023-10-20 11:11 | disposition home or self-care (01) ==
LOC: NCHCN 11:10
PROVIDERS: PCP Nurse Practitioner Family; Visit Provider Student in an Organized Health Care Education/Training Program
DX: I10 Essential (primary) hypertension (principal); E55.9 Vitamin D deficiency, unspecified; K21.9 Gastro-esophageal reflux disease without esophagitis
CPT/HCPCS: 80053; 80061; 82306; 82607; 84443; 85025

== ENCOUNTER → 2023-11-25 01:04 | Outpatient (CLI) | payer MEDICARE, SELFPAY ==
--- NOTE | 2023-11-25 | DI.US_ITS ---
Exam(s) US RENAL EXAM: US RENAL CLINICAL HISTORY: NEPHROLITHIASIS,N20.0,LOW URINARY TRACT SYMP,R39.9,ASSESS STONES. TECHNIQUE: Cody scale, color and spectral Doppler were used. COMPARISON: US RENAL ULTRASOUND from 06/25/2011 US SOFT TISSUE EXAM from 12/30/2011 CT ABD PELVIS WO CONTRAST from 02/16/2017 FINDINGS: Renal size in cm: Right: 11.2. Left: 9.9. Echogenicity: Normal. Hydronephrosis: Mild dilatation of the left renal collecting system. Cyst or mass: No. Nephrolithiasis: Several echogenic foci seen in the left kidney. The largest is in the superior pole and measures 9 mm. There is also an 8 mm echogenic focus in the upper pole and a 4 mm focus in the lower pole. Other findings: None. Bladder:Normal. Ureteral jets: Right: Visualized and unremarkable. Left: Visualized and unremarkable. Prevoid vol:232 cc Postvoid vol:0 cc Renal color flow: Symmetric and within normal limits. IMPRESSION: 1. Left nephrolithiasis. Mild left hydronephrosis. 2. No sonographic evidence of right nephrolithiasis or hydronephrosis. DATA REPOSITORY:
== END ==
PROVIDERS: PCP Nurse Practitioner Family; Visit Provider Urology
DX: N20.0 Calculus of kidney (principal); N13.30 Unspecified hydronephrosis; R39.89 Other symptoms and signs involving the genitourinary system
CPT/HCPCS: 76770

== ENCOUNTER 2023-11-25 17:44 | Outpatient (REF) | payer MEDICARE, SELFPAY | END 2023-11-25 17:45 | disposition home or self-care (01) | LOC: LBN 17:44 | PROVIDERS: PCP Nurse Practitioner Family; Referring Provider Urology; Visit Provider Urology | DX: R39.9 Unspecified symptoms and signs involving the genitourinary system (principal) | CPT/HCPCS: 87086 ==

== ENCOUNTER → 2023-12-01 02:04 | Outpatient (CLI) | payer MEDICARE, SELFPAY ==
--- NOTE | 2023-12-01 | DI.MAMMO_ITS ---
Exam(s) MAMMO SCREENING EXAM: MAMMO SCREENING CLINICAL HISTORY: SCREENING, Z12.31. TECHNIQUE: Bilateral full field digital CC and MLO mammographic images were obtained with 3D tomosyn thesis and utilizing computer aided detection (CAD). COMPARISON: Prior mammograms were reviewed. FINDINGS: There has been no significant change in the appearance and distribution of the fibroglandular tissue. There are no new spiculated masses nor malignant appearing microcalcification groups. There is no significant architectural distortion nor skin thickening-retraction. IMPRESSION: No radiographic evidence of malignancy. BI-RADS Category 1 - Negative Breast Density - Category B - Scattered areas of fibroglandular density Breast density Category C or D implies that the patient has dense breast tissue. Dense breast tissue can make it harder to find cancer on a mammogram. Dense breast tissue is also associated with an incr eased risk of breast cancer. This information about the result of the mammogram report was provided to the patient to raise their awareness. Use this report when you speak with the patient about their risks for breast cancer, which includes their family history. At that time, you may recommend additional screening tests (Ultrasoun d or MRI) as these tests may add significant information. A negative radiographic report should not delay biopsy if a dominant or clinically suspicious mass is present. Up to ten percent of cancers are not identified on mammography. A negative report may reinforce clinical impression. Adenosis and dense breasts may obscure an underlying neoplasm. False positive reports average 6 to 10%. Patient will receive a letter notifying them of these results.
== END ==
PROVIDERS: PCP Nurse Practitioner Family; Visit Provider Student in an Organized Health Care Education/Training Program
DX: Z12.31 Encounter for screening mammogram for malignant neoplasm of breast (principal)
CPT/HCPCS: 77063; 77067

== ENCOUNTER 2023-12-13 12:16 | Outpatient (REF) | payer MEDICARE, SELFPAY ==
[2023-12-13 16:09] LABS: Vitamin D 25 Total 61.2 ng/mL (30-100)
== END 2023-12-13 12:17 | disposition home or self-care (01) ==
LOC: NCHCN 12:16
PROVIDERS: PCP Nurse Practitioner Family; Visit Provider Student in an Organized Health Care Education/Training Program
DX: E55.9 Vitamin D deficiency, unspecified (principal)
CPT/HCPCS: 82306

== ENCOUNTER 2023-12-14 12:51 | Outpatient (REF) | payer MEDICARE, SELFPAY | END 2023-12-14 12:52 | disposition home or self-care (01) | LOC: NCHCN 12:51 | PROVIDERS: PCP Nurse Practitioner Family; Referring Provider Student in an Organized Health Care Education/Training Program; Visit Provider Student in an Organized Health Care Education/Training Program | DX: R19.5 Other fecal abnormalities (principal) | CPT/HCPCS: 87177 ==

== ENCOUNTER 2024-06-08 14:44 | Outpatient (CLI) | payer MEDICARE, SELFPAY ==
[2024-06-08 14:33] LABS: BUN 20 mg/dL (7-18); CREATININE 0.9 mg/dL (0.55-1.02); Calcium 9.3 mg/dL (8.5-10.1); Chloride 102 mmol/L (98-107); Estimated GFR 70.51 (mL/min/1.73m2); Glucose 122 mg/dL (74-106); Magnesium 1.8 mg/dL (1.8-2.4); Potassium 3.6 mmol/L (3.5-5.1); Sodium 142 mmol/L (136-145); Vitamin D 25 Total 33.4 ng/mL (30-100)
== END 2024-06-08 14:45 | disposition home or self-care (01) ==
LOC: LBO 14:48
PROVIDERS: PCP Nurse Practitioner Family; Visit Provider Student in an Organized Health Care Education/Training Program
DX: E55.9 Vitamin D deficiency, unspecified (principal); Z87.442 Personal history of urinary calculi
CPT/HCPCS: 36415; 80048; 82306; 83735

== ENCOUNTER → 2024-06-14 10:03 | Outpatient (BNVA) | payer MEDICARE, SELFPAY | PROVIDERS: PCP Nurse Practitioner Family; Visit Provider Internal Medicine Cardiovascular Disease | DX: I47.10 Supraventricular tachycardia, unspecified (principal) | CPT/HCPCS: 99213 ==

== ENCOUNTER 2024-09-06 13:12 | Emergency (ER) | payer MEDICARE, SELFPAY ==
[2024-09-06 13:17] VITALS: BP 176/78; PULSE 91; RESP 18; TEMP 37.1; O2SAT 98
[2024-09-06 13:58] LABS: Abs Immature Grans 0.02 10^3/uL (0.0-0.06); Absolute Basophil Count 0.03 10^3/uL (0.0-0.2); Absolute Eosinophil Count 0.12 10^3/uL (0.0-0.7); Absolute Lymphocyte Count 1.25 10^3/uL (1.2-3.4); Absolute Monocyte Count 0.44 10^3/uL (0.1-0.8); Absolute Neutrophil Count 5.68 10^3/uL (1.2-6.7); Basophils % 0.4 %; Eosinophils % 1.6 %; HCT 40.6 % (36.0-46.0); HGB 13.4 g/dL (11.2-15.7); Immature Grans % 0.3 %; Lymphocytes % 16.6 %; MCH 29.1 pg (27.0-33.0); MCV 88 fL (80-95); MPV 10.1 fL (8.0-11.0); Monocytes % 5.8 %; Neutrophils % 75.3 %; Platelet Count 261 10^3/uL (130-400); RDW-SD 38.3 fL; WBC 7.54 10^3/uL (4.4-10.8)
[2024-09-06] MEDS: Normal Saline - Diluent 50 ML VIAL IJ (14:04)
[2024-09-06] MEDS: Omnipaque 350 MG/ML 100 ML BTL IJ (14:05)
--- NOTE | 2024-09-06 14:07 | DI.CT_ITS ---
Exam(s) CT ABDOMEN PELVIS W EXAM: CT ABDOMEN PELVIS W CLINICAL HISTORY: L. flank and RLQ abd pain, hx stones and IBS. TECHNIQUE: Imaging Protocol: Axial computed tomography images with coronal and sagittal reformatted images were created and reviewed CONTRAST MATERIAL: Intravenous: Omnipaque 350 Contrast volume:75 ml Oral: no COMPARISON: CT ABD PELVIS WO CONTRAST from 02/16/2017 FINDINGS: ABDOMEN and PELVIS: Lung Bases: No acute findings. Liver: Normal density. No suspicious mass. Gallbladder and biliary tract: Status post cholecystectomy. no biliary dilation. Pancreas: Normal density. No abnormal calcifications or inflammatory process. No evidence of mass. Spleen: Normal. Kidneys: Normal size, contour and axis. Two nonobstructing stones in the right kidney. No obstructi ve uropathy. No suspicious masses seen. Adrenal glands: No masses seen. Vasculature: Abdominal aorta non-dilated. Atherosclerotic changes. Soft tissues: Unremarkable. Bladder: No gross wall thickening. No calculi.No focal mass. Bowel: No obstruction. Diverticulosis. Wall thickening of the mid sigmoid and surrounding inflamma tion consistent with diverticulitis. Appendix normal. Peritoneal cavity: No ascites. No focal collection. Mesenteric inflammatory response surrounding th e mid sigmoid. No free air. Bones: Unremarkable for age. Reproductive organs: Unremarkable. Lymph nodes: No pathologically enlarged lymph nodes. IMPRESSION:: Mild sigmoid diverticulitis. Findings called to Dr. Ang of the emergency department. RADIATION DOSE DELIVERED: Total DLP DATA REPOSITORY: All CT scans at this facility are submitted to the National Radiology Data Registry (NRDR) Dose Index Registry (DIR) with the [employer] (A[employer]). RADIATION OPTIMIZATION: All CT scans at this facility use at least one of these dose optimization te chniques: automated exposure control; mA and/or kV adjustment per patient size (includes targeted exa ms where dose is matched to clinical indication); or iterative reconstruction.
[2024-09-06 14:10] LABS: Lipase 30 U/L (<78)
[2024-09-06 14:12] LABS: Bilirubin Negative (Negative); Blood Negative (Negative); Clarity Clear (Clear); Glucose Negative (Negative); Ketones Negative (Negative); Leukocyte Esterase Negative (Negative); Nitrite Negative (Negative); Urobilinogen 0.2 mg/dL (Up to 0.2)
[2024-09-06 14:20] LABS: ALT 37 U/L (14-59); AST 24 U/L (15-37); Albumin 3.6 g/dL (3.4-5.0); Alkaline Phosphatase 142 U/L (46-116); Anion Gap 7.9 mmol/L (3-11); BUN 9 mg/dL (7-18); Bilirubin, Total 0.46 mg/dL (0.2-1.0); CO2 32.1 mmol/L (21.0-32.0); CREATININE 0.9 mg/dL (0.55-1.02); Calcium 9.8 mg/dL (8.5-10.1); Chloride 103 mmol/L (98-107); Estimated GFR 70.51 (mL/min/1.73m2); Glucose 129 mg/dL (74-106); Magnesium 1.8 mg/dL (1.8-2.4); Potassium 3.7 mmol/L (3.5-5.1); Sodium 143 mmol/L (136-145); Total Protein 7.4 g/dL (6.4-8.2)
[2024-09-06 14:21] VITALS: BP 146/77; PULSE 80; RESP 18; TEMP 36; O2SAT 98
--- NOTE | 2024-09-06 14:43 | ED.GENADUL_ITS ---
Discharge Plan Disposition Patient Disposition: Home Condition: Stable Discharge Details Clinical Impression: Diverticulitis of sigmoid colon Primary Care Provider: LYRIC TORRES ED Provider: Susan Ang Home Meds and New Rx's Prescriptions: New amoxicillin-pot clavulanate 875-125 mg tablet 1 tab PO Q8H 4 Days Qty: 12 0RF No Action meclizine 25 mg tablet 25 mg PO DAILY PRN potassium chloride [Klor-Con] 20 mEq packet 20 meq PO DAILY hydrochlorothiazide 25 mg tablet 25 mg PO QAM Qty: 90 3RF magnesium oxide 400 mg capsule 400 mg PO DAILY potassium citrate 10 mEq (1,080 mg) tablet extended release 30 meq PO BID Patient Comments: 12/25/18-pt reports her PCP wants to increase to 30 mEq PO QD but she has not increased her medication yet. mecobalamin (vitamin B12) 1,000 mcg lozenge 1,000 mcg PO DAILY Rx Instructions: allow to dissolve in mouth OR may chew lightly before swallowing cholecalciferol (vitamin D3) 1,250 mcg (50,000 unit) capsule 1,250 mcg PO QWEEK lisinopril 5 mg tablet 5 mg PO DAILY Qty: 90 6RF metoprolol succinate 25 mg tablet extended release 24 hr 25 mg PO DAILY Qty: 90 6RF ALBUTEROL SULFATE HFA 8.5 GM HFA.AER.AD 2 puff Inhalation Q6H PRN atorvastatin [Lipitor] 40 MG tablet 40 mg PO DAILY tamsulosin 0.4 mg capsule 0.4 mg PO DAILY PRN omeprazole 40 mg Capsule,Delayed Release(Dr/Ec) 40 mg PO DAILY Discharge Instructions Instructions: Diverticulitis (DC) Additional Instructions: You were seen in the emergency department today for evaluation of abdominal and flank pain and were found to have diverticulitis. In our department you had a full physical examination performed, had laboratory studies that were reassuring and had a CT scan that showed no other concerning findings besides the diverticulitis. I have started you on a medication called Augmentin, which you will take 3 times per day for a total of 5 days. You received your first dose here in the emergency department, as well as 2 doses to take home with you. The remaining 4 days are at the pharmacy, and you should take all this medication until it is gone, even if you start to feel better. You need to follow-up with your primary care provider for reassessment, and may benefit from a liquid diet for the next few days for your bowel rest. Thank you for allowing us to be part of your care. HPI General Mode of arrival: ambulatory . Date/Time Provider Initiated Documentation: 09/06/24 13:26 . Limitations to Documentation: no limitations . Information obtained by: patient and old records reviewed . HPI Narrative: HPI: This is a 64-year-old female patient with a past medical history significant for hyperlipidemia, hypertension, and renal stones, presenting for evaluation of right flank and right lower quadrant abdominal pain. Patient reports that she has had this pain since Tuesday, states that initially she thought it was her kidney stone and started taking Flomax. However, the pain now over stretches across her lower abdomen, and this is very different than her prior episodes of renal colic. She states that she developed nausea today, prompting her presentation to care. She did take some Zofran in the home environment to good effect. The patient has not noted any fevers, diarrhea, dysuria. Exam: Gen: Awake and alert, in no apparent distress HEENT: Non-icteric sclera Neck: Supple Lungs: No apparent respiratory distress, normal respiratory effort. CV: Appears well perfused, strong distal pulses Abdomen: Non-distended, soft, nontender to palpation without rigidity, rebound, or guarding. She does note that her tenderness is located in her right pelvic region, no bulging or hernia sacs palpable MSK: Moves 4 extremities without apparent limitation in ROM Skin: Visualized skin without rashes, cyanosis. Neuro: Normal Gait, no obvious focal deficits or facial asymmetry. Speaks in full, clear sentences. Psych: Appropriate for situation. MDM: This is a 64-year-old female patient presenting for evaluation of flank and abdominal pain. Differential includes but is not limited to nephrolithiasis, pyelonephritis/UTI, and I certainly considered other intra-abdominal abnormalities including appendicitis, diverticulitis, ovarian cyst, aortic pathology, mesenteric ischemia, pancreatitis, hepatitis, cholecystitis, gastroenteritis, bowel obstruction. I had a shared decision-making conversation with the patient, and do believe that she would benefit from CT imaging to better characterize any abnormalities that might account for her pain. This will be done with contrast given the broad differential. I will obtain laboratory studies to include CBC, CMP, lipase, urinalysis. ED Course: I independently interpreted the laboratory studies, which show no significant leukocytosis, anemia, or thrombocytopenia. The chemistry panel is without evidence of electrolyte abnormality, kidney dysfunction, or liver injury. Lipase is low and the UA is noninfectious and without hematuria. Independently reviewed the patient's CT scan and discussed the findings with the radiologist, which shows uncomplicated sigmoid diverticulitis. On reassessment, the patient reports that her symptoms have improved, she was able to tolerate p.o., and I did discuss with her the use of a liquid diet for management of diverticulitis symptoms. Given the duration of symptoms I do feel that it is reasonable to proceed with antibiosis, and provided her with a prescription for Augmentin to be taken every 8 hours for the next 5 days. At this time, the patient has had a full medical evaluation and is safe for discharge to home. They are hemodynamically stable, ambulatory, and tolerating PO. They are understanding of the follow-up plan and return precautions. They left our facility without incident. Susan Ang MD Related Data Home Medications ?Medication ?Instructions ?Recorded ?Confirmed Albuterol Sulfate Hfa 2 puff inhalation Q6H PRN 12/22/12 09/06/24 atorvastatin 40 mg tablet (Lipitor) 40 mg PO DAILY 04/03/17 09/06/24 magnesium oxide 400 mg PO DAILY 08/07/18 09/06/24 omeprazole 40 mg capsule,delayed 40 mg PO DAILY 09/18/18 09/06/24 release potassium citrate 10 mEq (1,080 30 meq PO BID 04/30/19 09/06/24 mg) tablet,extended release meclizine 25 mg tablet 25 mg PO DAILY PRN 06/15/21 09/06/24 potassium chloride 20 mEq oral 20 meq PO DAILY 06/14/22 09/06/24 packet (Klor-Con) hydrochlorothiazide 25 mg tablet 25 mg PO QAM #90 tabs 06/16/23 09/06/24 cholecalciferol (vitamin D3) 1,250 1,250 mcg PO QWEEK 06/14/24 09/06/24 mcg (50,000 unit) capsule lisinopril 5 mg tablet 5 mg PO DAILY #90 tabs 06/14/24 09/06/24 mecobalamin (vitamin B12) 1,000 1,000 mcg PO DAILY 06/14/24 09/06/24 mcg lozenges metoprolol succinate 25 mg 25 mg PO DAILY #90 tabs 06/14/24 09/06/24 tablet,extended release 24 hr amoxicillin 875 mg-potassium 1 tab PO Q8H 4 days #12 tabs 09/06/24 clavulanate 125 mg tablet tamsulosin 0.4 mg capsule 0.4 mg PO DAILY PRN 09/06/24 09/06/24 Previous Rx's ?Medication ?Instructions ?Recorded hydrochlorothiazide 25 mg tablet 25 mg PO QAM #90 tabs 06/16/23 lisinopril 5 mg tablet 5 mg PO DAILY #90 tabs 06/14/24 metoprolol succinate 25 mg 25 mg PO DAILY #90 tabs 06/14/24 tablet,extended release 24 hr amoxicillin 875 mg-potassium 1 tab PO Q8H 4 days #12 tabs 09/06/24 clavulanate 125 mg tablet Allergies Allergy/AdvReac Type Severity Reaction Status Date / Time diltiazem HCl (From Cardizem) Allergy Severe Anaphylaxsi Verified 09/06/24 13:20 s codeine (Codeine) AdvReac Mild nausea.vomi Verified 09/06/24 13:20 ting escitalopram oxalate (From AdvReac Mild nausea, Verified 09/06/24 13:20 Lexapro) vomiting meperidine HCl (From Demerol) AdvReac Mild nausea, Verified 09/06/24 13:20 vomiting morphine AdvReac Mild nausea, Verified 09/06/24 13:20 vomiting General Stated Complaint: FlankPain ROSA: 3 Course Vital Signs Vital signs: Vital Signs Temperature 37.1 C 09/06/24 13:17 Pulse 91 H 09/06/24 13:17 Respiratory Rate 18 09/06/24 13:17 Blood Pressure 176/78 H 09/06/24 13:17 Pulse Oximetry 98 09/06/24 13:17 Temperature 36 C L 09/06/24 14:21 Temperature Source Temporal Artery Scan 09/06/24 14:21 Pulse 80 09/06/24 14:21 Respiratory Rate 18 09/06/24 14:21 Respiratory Effort Normal, Non-Labored 09/06/24 14:03 Blood Pressure 146/77 H 09/06/24 14:21 Blood Pressure Position Sitting 09/06/24 14:21 Pulse Oximetry 98 09/06/24 14:21 Oxygen Delivery Method Room Air 09/06/24 14:21 Pain Level 3 09/06/24 13:17 Lab/Test Results Lab/Test Results: Laboratory Tests Range/Units 09/06/24 09/06/24 13:52 13:59 WBC (4.4-10.8) 10^3/uL 7.54 RBC (3.93-5.22) 10^6/uL 4.60 Hgb (11.2-15.7) g/dL 13.4 Hct (36.0-46.0) % 40.6 MCV (80-95) fL 88 MCH (27.0-33.0) pg 29.1 MCHC (32.0-36.0) % 33.0 RDW (11.7-14.6) % 12.0 Plt Count (130-400) 10^3/uL 261 MPV (8.0-11.0) fL 10.1 Immature Gran % % 0.3 Neutrophils % % 75.3 Lymphocytes % % 16.6 Monocytes % % 5.8 Eosinophils % % 1.6 Basophils % % 0.4 Nucleated RBC % (0.0-0.3) % 0.0 Absolute Neutrophils (1.2-6.7) 10^3/uL 5.68 Absolute Lymphocytes (1.2-3.4) 10^3/uL 1.25 Absolute Monocytes (0.1-0.8) 10^3/uL 0.44 Absolute Eosinophils (0.0-0.7) 10^3/uL 0.12 Absolute Basophils (0.0-0.2) 10^3/uL 0.03 Sodium (136-145) mmol/L 143 Potassium (3.5-5.1) mmol/L 3.7 Chloride (98-107) mmol/L 103 Carbon Dioxide (21.0-32.0) mmol/L 32.1 H Anion Gap (3-11) mmol/L 7.9 BUN (7-18) mg/dL 9 Creatinine (0.55-1.02) mg/dL 0.9 Est GFR (CKD-EPI 2020) (mL/min/1.73m2) 70.51 Glucose (74-106) mg/dL 129 H Calcium (8.5-10.1) mg/dL 9.8 Magnesium (1.8-2.4) mg/dL 1.8 Total Bilirubin (0.2-1.0) mg/dL 0.46 AST (15-37) U/L 24 ALT (14-59) U/L 37 Alkaline Phosphatase (46-116) U/L 142 H Total Protein (6.4-8.2) g/dL 7.4 Albumin (3.4-5.0) g/dL 3.6 Lipase (<78) U/L 30 Urine Color (Yellow) Yellow Urine Clarity (Clear) Clear Urine pH (5-8) 7.0 Ur Specific [place] (1.005-1.025) 1.010 Urine Protein (Neg-Trace) mg/dL Negative Urine Ketones (Negative) mg/dL Negative Urine Blood (Negative) Negative Urine Nitrite (Negative) Negative Urine Bilirubin (Negative) Negative Urine Urobilinogen (Up to 0.2) mg/dL 0.2 Ur Leukocyte Esterase (Negative) Negative Urine Glucose (Negative) mg/dL Negative Medical Decision Making Quality:SDOH Health Related Social Needs: No Data to Display PFSH All Active Problems (Updated 09/06/24 @ 14:43 by Susan Ang MD) Diverticulitis of sigmoid colon (Acute) Supraventricular tachycardia (Chronic) Medical History (Updated 09/06/24 @ 14:43 by Susan Ang MD) Irritable bowel syndrome HTN (hypertension) Hyperlipemia Asthma Surgical History H/O section Hx of cholecystectomy History of tonsillectomy Social History Smoking/Tobacco Use Status: Never Smoking risk assessment performed?: Yes Alcohol Intake: never Drug use: Never Substance use type: does not use Do you feel safe in your relationship?: Yes
[2024-09-06] MEDS: Amox. 875/Clav. 125, 2 TABS/BTL 1 TAB PO (14:53)
[2024-09-06] MEDS: Amoxicillin 875/Clav. 125 TAB PO (14:54)
[2024-09-06 15:03] VITALS: BP 113/49; PULSE 73; RESP 18; O2SAT 97
== END 2024-09-06 15:07 | disposition home or self-care (01) ==
PROVIDERS: Emergency Provider Emergency Medicine; PCP Nurse Practitioner Family
DX: K57.32 Diverticulitis of large intestine without perforation or abscess without bleeding (principal); I10 Essential (primary) hypertension; E78.5 Hyperlipidemia, unspecified
CPT/HCPCS: 36415; 80053; 83690; 99285; 74177; 81003; 83735; 85025; 99284; J3490

== ENCOUNTER 2024-11-29 01:49 | Outpatient (CLI) | payer MEDICARE, SELFPAY ==
--- NOTE | 2024-11-29 | DI.DEXA_ITS ---
Exam(s) XR DEXA BONE DENSITY W/WO TONY EXAM: XR DEXA BONE DENSITY W/WO TONY CLINICAL HISTORY: Z78.0 Asymptomatic menopausal state TECHNIQUE: H[employer] Horizon C densitometer analysis of left hip, lumbar spine and left forearm. Lat eral survey image of the thoracic and lumbar spine. COMPARISON: DX DEXA BONE DENSITY WITH TONY from 09/11/2010 DX DEXA BONE DENSITY WITH TONY from 07/10/2015 CR XR DEXA BONE DENSITY W/WO TONY from 09/18/2020 FINDINGS: Lateral view of the thoracic and lumbar spine shows no evidence of compression fractures. Bone mineral density measurements of the lumbar spine correspond to a total T-score of -0.8, in the normal range. Not significantly changed from 2019. 5.3 percent decrease from 2010 baseline exam. Bone mineral density measurements of the left hip correspond to a total T-score of -1.5. This repre sents a 4.4 percent decrease compared with 2019 and 18.2 percent decrease compared with 2009. The fe moral neck T-score is -2.2, in the osteopenic range.. Theleft forearm bone mineral density measurements correspond to a T-score of the distal 3rd of -2.8, in the osteoporotic range. This represents a 6 percent decrease from 2020 and a 23.1 percent decrea se compared with 2009. IMPRESSION: Normal bone density of the lumbar spine. Osteopenia of the hip. Osteoporosis of the forearm.
== END 2024-11-29 02:09 ==
LOC: DI 01:49
PROVIDERS: PCP Nurse Practitioner Family; Visit Provider Student in an Organized Health Care Education/Training Program
DX: Z78.0 Asymptomatic menopausal state (principal); Z13.820 Encounter for screening for osteoporosis; M81.0 Age-related osteoporosis without current pathological fracture
CPT/HCPCS: 77080

== ENCOUNTER 2025-04-12 15:51 | Outpatient (CLI) | payer MEDICARE, SELFPAY ==
[2025-04-12 11:41] LABS: Vitamin D 25 Total 33 ng/mL (30-100)
== END 2025-04-12 15:52 | disposition home or self-care (01) ==
LOC: LBO 15:52
PROVIDERS: PCP Nurse Practitioner Family; Visit Provider Student in an Organized Health Care Education/Training Program
DX: M81.0 Age-related osteoporosis without current pathological fracture (principal)
CPT/HCPCS: 36415; 82306; 82310

== ENCOUNTER 2025-06-27 08:35 | Outpatient (CLI) | payer MEDICARE, SELFPAY ==
--- NOTE | 2025-06-27 08:30 | RT.EKG_ITS ---
APPROVED REPORT Exam: Resting ECG Reason for Exam: evluate cardiac status Patient Location: O HR:72 bpm ECG Measurements Heart Rate 72 AXIS MD 159 P 22 QRSd 78 QRS 1 QT 398 T 39 QTc 436 Conclusion Sinus rhythm...normal P axis, V-rate 50- 99 Baseline wander in lead(s) V2 Normal Electrocardiogram
== END 2025-06-27 08:36 | disposition home or self-care (01) ==
LOC: DI.CARD 08:35
PROVIDERS: PCP Nurse Practitioner Family; Visit Provider Internal Medicine Cardiovascular Disease
DX: I10 Essential (primary) hypertension (principal)
CPT/HCPCS: 93010

== ENCOUNTER → 2025-06-27 10:08 | Outpatient (BNVA) | payer MEDICARE, SELFPAY | PROVIDERS: PCP Nurse Practitioner Family; Visit Provider Internal Medicine Cardiovascular Disease | DX: I47.10 Supraventricular tachycardia, unspecified (principal); I10 Essential (primary) hypertension; Z79.811 Long term (current) use of aromatase inhibitors; Z79.899 Other long term (current) drug therapy | CPT/HCPCS: 99214; 93005 ==

== ENCOUNTER 2025-08-11 18:02 | Emergency (ER) | payer MEDICARE, SELFPAY ==
[2025-08-11] VITALS (13 sets, daily range): BP systolic 144–191; BP diastolic 74; PULSE 58–74; RESP 13–21; TEMP 36.5; O2SAT 95–98
--- NOTE | 2025-08-11 18:10 | W.ED.GENAD ---
Discharge Plan Disposition Patient Disposition: Home Condition: Stable Discharge Details Clinical Impression: Right ureteral stone Primary Care Provider: LYRIC TORRES ED Provider: Alessandro Ely Home Meds and New Rx's Prescriptions: New tamsulosin 0.4 mg capsule 0.4 mg PO DAILY Qty: 30 0RF ketorolac 10 mg tablet 10 mg PO QID 5 Days Qty: 20 0RF Rx Instructions: maximum total duration of 5 days from all oral, intranasal, or parenteral formulations Continued meclizine 25 mg tablet 25 mg PO DAILY PRN potassium chloride [Klor-Con] 20 mEq packet 20 meq PO DAILY hydrochlorothiazide 25 mg tablet 25 mg PO QAM Qty: 90 3RF magnesium oxide 400 mg capsule 400 mg PO DAILY potassium citrate 10 mEq (1,080 mg) tablet extended release 30 meq PO BID Patient Comments: 12/25/18-pt reports her PCP wants to increase to 30 mEq PO QD but she has not increased her medication yet. mecobalamin (vitamin B12) 1,000 mcg lozenge 1,000 mcg PO DAILY Rx Instructions: allow to dissolve in mouth OR may chew lightly before swallowing cholecalciferol (vitamin D3) 1,250 mcg (50,000 unit) capsule 1,250 mcg PO QWEEK metoprolol succinate 25 mg tablet extended release 24 hr 25 mg PO DAILY Qty: 90 6RF lisinopril 5 mg tablet 5 mg PO DAILY Qty: 90 6RF ALBUTEROL SULFATE HFA 8.5 GM HFA.AER.AD 2 puff Inhalation Q6H PRN atorvastatin [Lipitor] 40 MG tablet 40 mg PO DAILY omeprazole 40 mg Capsule,Delayed Release(Dr/Ec) 40 mg PO DAILY Discharge Instructions Instructions: Ketorolac (Systemic), Tamsulosin, Kidney Stone, Adult ED Additional Instructions: You were seen in the emergency department for your 4 mm right ureteral stone, your urine is uninfected and your labs are reassuring for no sign of systemic illness, take 1000 mg of Tylenol every 8 hours as you are over 65 your daily maximum is 3000 mg. Take the prescribed Toradol every 6 hours for pain relief, take the tamsulosin once daily, stay well-hydrated, purchase [id number] AZO to help numb the urethra. Follow-up with urology, return for any signs of urinary obstruction or worsening systemic illness like fever, nausea. Stand Alone Forms: Portal Information Referrals: LYRIC TORRES NP [Primary Care Provider, Medicine] HPI General Date/Time Provider Initiated Documentation: 08/11/25 18:10. HPI Narrative: 65 year-old female presents to ED today by POV/ambulating with a chief complaint of RLQ abdominal pain with onset 1.5 weeks ago. Quality described as aching pain - known history of renal stones, as well as an atypical episode of diverticulitis with R-sided pain in the past, no radiation to nausea/vomiting, fever, cough, chest pain, shortness of breath, dysuria, constipation. Severity is described as 5/10. Palliating factors include nothing specific attempted. Provoking factors include nothing specific. Patient not anticoagulated. Related Data Home Medications Medication Instructions Recorded Confirmed Albuterol Sulfate Hfa 2 puff inhalation Q6H PRN 12/22/12 08/11/25 atorvastatin 40 mg tablet (Lipitor) 40 mg PO DAILY 04/03/17 08/11/25 magnesium oxide 400 mg PO DAILY 08/07/18 08/11/25 omeprazole 40 mg capsule,delayed 40 mg PO DAILY 09/18/18 08/11/25 release potassium citrate 10 mEq (1,080 30 meq PO BID 04/30/19 08/11/25 mg) tablet,extended release meclizine 25 mg tablet 25 mg PO DAILY PRN 06/15/21 08/11/25 potassium chloride 20 mEq oral 20 meq PO DAILY 06/14/22 08/11/25 packet (Klor-Con) hydrochlorothiazide 25 mg tablet 25 mg PO QAM #90 tabs 06/16/23 08/11/25 cholecalciferol (vitamin D3) 1,250 1,250 mcg PO QWEEK 06/14/24 08/11/25 mcg (50,000 unit) capsule mecobalamin (vitamin B12) 1,000 1,000 mcg PO DAILY 06/14/24 08/11/25 mcg lozenges lisinopril 5 mg tablet 5 mg PO DAILY #90 tabs 06/27/25 08/11/25 metoprolol succinate 25 mg 25 mg PO DAILY #90 tabs 06/27/25 08/11/25 tablet,extended release 24 hr ketorolac 10 mg tablet 10 mg PO QID 5 days #20 tabs 11/16/25 tamsulosin 0.4 mg capsule 0.4 mg PO DAILY #30 caps 08/11/25 Previous Rx's Medication Instructions Recorded hydrochlorothiazide 25 mg tablet 25 mg PO QAM #90 tabs 06/16/23 lisinopril 5 mg tablet 5 mg PO DAILY #90 tabs 06/27/25 metoprolol succinate 25 mg 25 mg PO DAILY #90 tabs 06/27/25 tablet,extended release 24 hr ketorolac 10 mg tablet 10 mg PO QID 5 days #20 tabs 08/11/25 tamsulosin 0.4 mg capsule 0.4 mg PO DAILY #30 caps 08/11/25 Allergies Allergy/AdvReac Type Severity Reaction Status Date / Time diltiazem HCl (From Cardizem) Allergy Severe Anaphylaxsi Verified 08/11/25 18:11 s codeine (Codeine) AdvReac Mild nausea.vomi Verified 08/11/25 18:11 ting escitalopram oxalate (From AdvReac Mild nausea, Verified 08/11/25 18:11 Lexapro) vomiting meperidine HCl (From Demerol) AdvReac Mild nausea, Verified 08/11/25 18:11 vomiting morphine AdvReac Mild nausea, Verified 08/11/25 18:11 vomiting General ROSA: 3 Review of Systems All systems reviewed & are unremarkable except as noted in HPI and below Exam Narrative Exam Narrative: GENERAL APPEARANCE: Well-nourished, non-toxic, awake and alert, atraumatic, mild acute distress. SKIN: Warm, pink, dry, intact, without rashes/lesions/ulcerations. HEAD: Normocephalic, atraumatic, normal hair distribution for gender/age. EYES: Normal conjunctiva, no exudates on lids/lashes. ENT: Nares patent, no circumoral cyanosis, no facial swelling NECK: Supple, trachea midline, painless cervical ROM. LUNGS/CHEST: Lungs CTA bilaterally-no rhonchi/rales/wheeze diffusely, non-labored respirations, normal A/P diameter, symmetrical expansion, no chest wall deformity HEART (CV/PV): Regular rate and rhythm without murmur, no peripheral edema, no JVD. ABDOMEN: Soft, non-distended, no guarding, right lower quadrant tenderness, right CVA tenderness to percussion. MSK: Normal ROM, no swelling/deformity to bilateral UEs or LEs, moving all extremities without weakness, no cyanosis, spine midline without tenderness, normal curvature. NEURO: Mental Status AAOx4 - alert to person, place, time, events No facial droop, no forehead involvement. Motor: No focal weakness - strength 5/5 in bilateral UEs and LEs, proximal and distal, symmetric. Sensory: sensation intact to light touch globally. Gait normal: patient ambulated without ataxia into ED room. PSYCH: euthymic, cooperative, pleasant, appropriate speech Medical Decision Making This dictation utilizes [id number] dictation software and may contain unedited grammatical errors. 65 year-old female presents to ED today by POV/ambulating with a chief complaint of RLQ abdominal pain with onset 1.5 weeks ago. Quality described as aching pain - known history of renal stones, as well as an atypical episode of diverticulitis with R-sided pain in the past, no radiation to nausea/vomiting, fever, cough, chest pain, shortness of breath, dysuria, constipation. Severity is described as 5/10. Palliating factors include nothing specific attempted. Provoking factors include nothing specific. Patients' medical history: IBS, hypertension, hyperlipidemia, asthma, history of kidney stones, status post cholecystectomy. Family and social history: Noncontributory. Pertinent exam findings / vital signs include right lower quadrant tenderness, mild tenderness to percussion right CVA, stable vitals, benign cardiopulmonary status. Differential / pathologies of concern include renal stone, appendicitis, UTI, gastroenteritis, SBO, diverticulitis. Diagnostic studies of: - CBC, CMP, lactate, lipase, UA, CT ABD/pelvis with contrast. - CBC is unremarkable - CMP shows mildly low potassium, patient has supplements at home - Lipase negative - UA without signs of infection - CT shows a 4 mm right ureteral stone Interventions of: - 15 mg IV ketorolac, home dose of 5 mg lisinopril, 1 g IV Tylenol, 1 L IVF NS. 0.4mg Tamsulosin here + Rx ED Course/Assessment/Plan: 65-year-old female presents with right lower quadrant abdominal pain, is 4 mm right ureteral stone on CT, has had many stones in the past, plan to treat her with tamsulosin and 5 days of ketorolac, recommend Tylenol, follow-up with urology and return here for any signs of fever, nausea vomiting, systemic illness or any other emergent concerns. Findings not consistent with stone too large to pass, obstructive uropathy, sepsis, UTI, infected kidney stone. Disposition of right ureteral stone. Patient verbalized understanding of the plan and return to ED criteria and engaged in shared decision making. Medical Records Medical records reviewed: Yes I reviewed the patient's medical records. Imaging Data Radiologic Study: Attestation: I personally reviewed and interpreted this imaging study as follows: Imaging: CT Scan Radiologist's impression: Exam: CT Abdomen And Pelvis With Contrast Exam date and time: 08/11/2025 7:00 PM Age: 65 years old Clinical indication: Abdominal pain; Localized; Right lower quadrant (rlq); Prior surgery; Surgery date: 6+ months; Surgery type: Gallbladder, ; Rlq tenderness TECHNIQUE: Imaging protocol: Computed tomography of the abdomen and pelvis with contrast. COMPARISON: CT ABDOMEN PELVIS W 09/06/2024 2:02 PM FINDINGS: Lungs: Lung bases are clear. Liver: The liver has a normal appearance. Gallbladder and biliary ducts: The gallbladder is surgically absent. Pancreas: The pancreas demonstrates normal size. No pancreatic ductal dilatation. Spleen: The spleen demonstrates normal size. Adrenal glands: The adrenal glands have a normal appearance. Kidneys and ureters: Punctate nonobstructing calculi are visualized within the bilateral kidneys. There is a 4 mm calculus within the inferior right ureter. The surrounding ureter appears thick walled suggesting focal edema. The downstream ureter is decompressed. Stomach and bowel: The bowel demonstrates overall normal caliber and wall thickness. There are scattered diverticular outpouchings throughout the colon. No mucosal thickening or pericolonic fat stranding. Appendix: The appendix is thin walled. Intraperitoneal space: Unremarkable. No free air. No significant fluid collection. Vasculature: There are scattered atheromatous calcifications throughout the aorta and iliac arteries. Lymph nodes: No enlarged lymph nodes. Urinary bladder: The bladder is thin walled and fluid filled. Reproductive: Unremarkable as visualized. Bones/joints: Bones have a normal appearance. No acute fracture or suspicious bone lesion. Soft tissues: There is a moderate-sized fat containing right inguinal hernia. There is a large fat containing left inguinal hernia. IMPRESSION: 1. Right ureterolithiasis. No significant hydronephrosis or hydroureter suggesting a partially obstructive calculus. No left hydronephrosis, hydroureter, or ureterolithiasis. 2. No other acute intra-abdominal findings. 3. Normal appendix. 4. Nonobstructing nephrolithiasis. Dictated and Authenticated by: Mya Mcnally MD. Lab Data Lab results reviewed: Yes I reviewed the patient's lab results. Labs: Laboratory Tests Range/Units 08/11/25 08/11/25 18:25 19:00 WBC (4.4-10.8) 10^3/uL 7.71 RBC (3.93-5.22) 10^6/uL 4.49 Hgb (11.2-15.7) g/dL 13.1 Hct (36.0-46.0) % 39.6 MCV (80-95) fL 88 MCH (27.0-33.0) pg 29.2 MCHC (32.0-36.0) % 33.1 RDW (11.7-14.6) % 12.8 Plt Count (130-400) 10^3/uL 265 MPV (8.0-11.0) fL 10.5 Immature Gran % % 0.3 Neutrophils % % 58.0 Lymphocytes % % 29.3 Monocytes % % 9.3 Eosinophils % % 2.7 Basophils % % 0.4 Nucleated RBC % (0.0-0.3) % 0.0 Absolute Neutrophils (1.2-6.7) 10^3/uL 4.47 Absolute Lymphocytes (1.2-3.4) 10^3/uL 2.26 Absolute Monocytes (0.1-0.8) 10^3/uL 0.72 Absolute Eosinophils (0.0-0.7) 10^3/uL 0.21 Absolute Basophils (0.0-0.2) 10^3/uL 0.03 VBG Lactate (<or=2.0) mmol/L 1.0 Sodium (136-145) mmol/L 145 Potassium (3.5-5.1) mmol/L 3.4 L Chloride (98-107) mmol/L 105 Carbon Dioxide (20.0-31.0) mmol/L 32.8 H Anion Gap (3-11) mmol/L 7.2 BUN (9-23) mg/dL 14 Creatinine (0.55-1.02) mg/dL 0.7 Est GFR (CKD-EPI 2020) (mL/min/1.73m2) 78.21 Glucose (74-106) mg/dL 82 Calcium (8.3-10.6) mg/dL 9.4 Total Bilirubin (0.2-1.2) mg/dL 0.50 AST (<34) U/L 35 ALT (10-49) U/L 43 Alkaline Phosphatase (46-116) U/L 107 Total Protein (5.7-8.2) g/dL 6.9 Albumin (3.4-5.0) g/dL 4.5 Lipase (<53) U/L 32 Urine Color (Yellow) Yellow Urine Clarity (Clear) Clear Urine pH (5-8) 7.5 Ur Specific [place] (1.005-1.025) 1.015 Urine Protein (Neg-Trace) mg/dL Negative Urine Ketones (Negative) mg/dL Negative Urine Blood (Negative) Trace-lysed H Urine Nitrite (Negative) Negative Urine Bilirubin (Negative) Negative Urine Urobilinogen (Up to 0.2) mg/dL 0.2 Ur Leukocyte Esterase (Negative) Negative Urine Glucose (Negative) mg/dL Negative PFSH All Active Problems (Updated 08/11/25 @ 19:29 by CRISTIANE Roberts) Right ureteral stone (Acute) Supraventricular tachycardia (Chronic) Medical History (Updated 08/11/25 @ 19:29 by CRISTIANE Roberts) Irritable bowel syndrome HTN (hypertension) Hyperlipemia Asthma Surgical History H/O section Hx of cholecystectomy History of tonsillectomy Social History Smoking/Tobacco Use Status: Never Smoking risk assessment performed?: Yes Alcohol Intake: never Drug use: Never Substance use type: does not use Housing: apartment Do you feel safe in your relationship?: Yes
--- NOTE | 2025-08-11 18:15 | DI.CT_ITS ---
Exam(s) CT ABDOMEN PELVIS W EXAM: CT ABDOMEN PELVIS W CLINICAL HISTORY: RLQ tenderness. TECHNIQUE: Imaging Protocol: Axial computed tomography images with coronal and sagittal reformatted images were created and reviewed CONTRAST MATERIAL: Intravenous: Omnipaque 350 Contrast volume:The 5 ml Oral: no COMPARISON: CT CT ABDOMEN PELVIS W from 09/06/2024 FINDINGS: ABDOMEN and PELVIS: Lung Bases: No acute findings. Liver: Normal density. No suspicious mass. Gallbladder and biliary tract: Cholecystectomy. No biliary dilation. Pancreas: Normal density. No abnormal calcifications or inflammatory process. No evidence of mass. Spleen: Normal. Kidneys: Normal size, contour and axis. 4 millimeter stone is noted in the distal right ureter, causing mild right hydronephrosis.. Other small nonobstructing stones are noted in both kidneys. No suspicious masses seen. Adrenal glands: No masses seen. Vasculature: Abdominal aorta non-dilated. Throw sclerotic changes. Soft tissues: Bilateral fat containing inguinal hernias. Bladder: Nearly empty. No gross wall thickening. No calculi.No focal mass. Bowel: No obstruction. No bowel wall thickening. Appendix normal. Mild sigmoid diverticulosis. Peritoneal cavity: No ascites. No focal collection. No mesenteric inflammatory response. No free air. Bones: Unremarkable for age. Reproductive organs: Unremarkable. Lymph nodes: No pathologically enlarged lymph nodes. IMPRESSION:: 4 millimeter stone in the distal right ureter causing mild right hydronephrosis. Other bilateral nonobstructing calculi are also noted. The preliminary [facility] report was reviewed. RADIATION DOSE DELIVERED: 627.09mGy.cm Total DLP DATA REPOSITORY: All CT scans at this facility are submitted to the National Radiology Data Registry (NRDR) Dose Index Registry (DIR) with the [employer] (A[employer]). RADIATION OPTIMIZATION: All CT scans at this facility use at least one of these dose optimization techniques: automated exposure control; mA and/or kV adjustment per patient size (includes targeted exams where dose is matched to clinical indication); or iterative reconstruction.
[2025-08-11] MEDS: ACETAMINOPHEN 1,000 MG/100 ML BAG 400 MG IVPB (18:32)
[2025-08-11] MEDS: Ketorolac 15 MG/ML VIAL IVP (18:33)
[2025-08-11] MEDS: Lisinopril 5 MG TAB PO (18:33)
[2025-08-11] MEDS: Normal Saline 1,000 ML 1000 ML IV (18:33)
[2025-08-11 18:35] LABS: Abs Immature Grans 0.02 10^3/uL (0.0-0.06); HCT 39.6 % (36.0-46.0); HGB 13.1 g/dL (11.2-15.7); Immature Grans % 0.3 %; MCH 29.2 pg (27.0-33.0); MCHC 33.1 % (32.0-36.0); MCV 88 fL (80-95); MPV 10.5 fL (8.0-11.0); Platelet Count 265 10^3/uL (130-400); RBC 4.49 10^6/uL (3.93-5.22); RDW 12.8 % (11.7-14.6); RDW-SD 41.1 fL; WBC 7.71 10^3/uL (4.4-10.8)
[2025-08-11 18:52] LABS: Lipase 32 U/L (<53)
[2025-08-11 18:54] LABS: ALT 43 U/L (10-49); AST 35 U/L (<34); Albumin 4.5 g/dL (3.4-5.0); Alkaline Phosphatase 107 U/L (46-116); Anion Gap 7.2 mmol/L (3-11); BUN 14 mg/dL (9-23); Bilirubin, Total 0.50 mg/dL (0.2-1.2); CO2 32.8 mmol/L (20.0-31.0); Calcium 9.4 mg/dL (8.3-10.6); Chloride 105 mmol/L (98-107); Glucose 82 mg/dL (74-106); Potassium 3.4 mmol/L (3.5-5.1); Sodium 145 mmol/L (136-145); Total Protein 6.9 g/dL (5.7-8.2)
[2025-08-11] MEDS: Normal Saline - Diluent 50 ML VIAL IJ (18:58)
[2025-08-11] MEDS: Omnipaque 350 MG/ML 100 ML BTL IJ (18:58)
[2025-08-11 19:14] LABS: Glucose Negative (Negative)
--- NOTE | 2025-08-11 19:19 | DI.[facility]_ITS ---
PROCEDURE INFORMATION: Exam: CT Abdomen And Pelvis With Contrast Exam date and time: 08/11/2025 7:00 PM Age: 65 years old Clinical indication: Abdominal pain; Localized; Right lower quadrant (rlq); Prior surgery; Surgery date: 6+ months; Surgery type: Gallbladder, ; Rlq tenderness TECHNIQUE: Imaging protocol: Computed tomography of the abdomen and pelvis with contrast. COMPARISON: CT ABDOMEN PELVIS W 09/06/2024 2:02 PM FINDINGS: Lungs: Lung bases are clear. Liver: The liver has a normal appearance. Gallbladder and biliary ducts: The gallbladder is surgically absent. Pancreas: The pancreas demonstrates normal size. No pancreatic ductal dilatation. Spleen: The spleen demonstrates normal size. Adrenal glands: The adrenal glands have a normal appearance. Kidneys and ureters: Punctate nonobstructing calculi are visualized within the bilateral kidneys. There is a 4 mm calculus within the inferior right ureter. The surrounding ureter appears thick walled suggesting focal edema. The downstream ureter is decompressed. Stomach and bowel: The bowel demonstrates overall normal caliber and wall thickness. There are scattered diverticular outpouchings throughout the colon. No mucosal thickening or pericolonic fat stranding. Appendix: The appendix is thin walled. Intraperitoneal space: Unremarkable. No free air. No significant fluid collection. Vasculature: There are scattered atheromatous calcifications throughout the aorta and iliac arteries. Lymph nodes: No enlarged lymph nodes. Urinary bladder: The bladder is thin walled and fluid filled. Reproductive: Unremarkable as visualized. Bones/joints: Bones have a normal appearance. No acute fracture or suspicious bone lesion. Soft tissues: There is a moderate-sized fat containing right inguinal hernia. There is a large fat containing left inguinal hernia. IMPRESSION: 1. Right ureterolithiasis. No significant hydronephrosis or hydroureter suggesting a partially obstructive calculus. No left hydronephrosis, hydroureter, or ureterolithiasis. 2. No other acute intra-abdominal findings. 3. Normal appendix. 4. Nonobstructing nephrolithiasis. Dictated and Authenticated by: Mya Mcnally MD. Orderin Jhoana Francois MD
[2025-08-11 19:28] LABS: C & S Indicated? No; WBC 0-2 HPF (0-5)
[2025-08-11] MEDS: Tamsulosin 0.4 MG CAPCR PO (19:40)
== END 2025-08-11 19:50 | disposition home or self-care (01) ==
PROVIDERS: Emergency Provider Physician Assistant; PCP Nurse Practitioner Family
DX: N20.1 Calculus of ureter (principal); R10.31 Right lower quadrant pain
CPT/HCPCS: 80053; 83690; 96361; 96374; 96375; 99285; 74177; 81003; 81015; 83605; 85025; 99284; J0131; J1885; J3490

== ENCOUNTER 2025-09-07 16:03 | Emergency (ER) | payer MEDICARE, SELFPAY ==
[2025-09-07 16:10] VITALS: BP 172/75; PULSE 68; RESP 16; TEMP 36.6; O2SAT 98
--- NOTE | 2025-09-07 16:15 | DI.RAD_ITS ---
Exam(s) XR HAND RT COMPLETE EXAM: XR HAND RT COMPLETE CLINICAL HISTORY: bruising 4th PIP and MCP, no known trauma. TECHNIQUE: 2D digital imaging was performed. Three views. COMPARISON: CR LEFT FOOT COMPLETE from 04/03/2017 FINDINGS: BONES: No acute fracture is present. No bony destructive lesion is seen. Incidentally noted is mild prominence at the palmar surface of the cortex of the 3rd through 5th middle phalanges. This is a normal variant of prominence at the flexor tendon attachments. JOINTS: No dislocation present. Minimal degenerative changes. SOFT TISSUE: Normal. IMPRESSION: Unremarkable radiographs of the right hand. The preliminary [facility] report was reviewed. DATA REPOSITORY: RADIATION DOSE DELIVERED:
--- NOTE | 2025-09-07 16:21 | W.ED.GENAD ---
Discharge Plan Disposition Patient Disposition: Home Condition: Stable Discharge Details Clinical Impression: Superficial bruising of finger Primary Care Provider: LYRIC TORRES ED Provider: Susan Ang Home Meds and New Rx's Prescriptions: No Action meclizine 25 mg tablet 25 mg PO DAILY PRN potassium chloride [Klor-Con] 20 mEq packet 20 meq PO DAILY hydrochlorothiazide 25 mg tablet 25 mg PO QAM Qty: 90 3RF magnesium oxide 400 mg capsule 400 mg PO DAILY potassium citrate 10 mEq (1,080 mg) tablet extended release 30 meq PO BID Patient Comments: 12/25/18-pt reports her PCP wants to increase to 30 mEq PO QD but she has not increased her medication yet. mecobalamin (vitamin B12) 1,000 mcg lozenge 1,000 mcg PO DAILY Rx Instructions: allow to dissolve in mouth OR may chew lightly before swallowing cholecalciferol (vitamin D3) 1,250 mcg (50,000 unit) capsule 1,250 mcg PO QWEEK metoprolol succinate 25 mg tablet extended release 24 hr 25 mg PO DAILY Qty: 90 6RF lisinopril 5 mg tablet 5 mg PO DAILY Qty: 90 6RF ALBUTEROL SULFATE HFA 8.5 GM HFA.AER.AD 2 puff Inhalation Q6H PRN atorvastatin [Lipitor] 40 MG tablet 40 mg PO DAILY tamsulosin 0.4 mg capsule 0.4 mg PO DAILY Qty: 30 0RF omeprazole 40 mg Capsule,Delayed Release(Dr/Ec) 40 mg PO DAILY Discharge Instructions Instructions: Taking care of bruises Additional Instructions: You were seen in the emergency department today for evaluation of bruising on your finger. In our department you do full physical examination, and had an x-ray that did not show any broken bones or obvious injuries, though I do note some changes that suggest potentially you have sustained some minor trauma to your fingers and those bones are healing. This may have been due to the outside work you were doing with your snowblower, though it is impossible to say for certain. At this time there is nothing to suggest that it is dangerous for you to use your hand, and the bruise will continue to change and resolve over the next 1 to 2 weeks. You can continue to use Tylenol and ibuprofen, as well as ice and elevation for management of pain and swelling. If you start to develop significant bruising that is not associated with trauma in other areas of your body, develop a petechial rash that looks like broken blood vessels, or develop a fever you should be reevaluated by your primary care provider or you can always return to the emergency department for reevaluation. Please follow-up with your primary care provider in the next few days to discuss this visit and any symptoms that change, worsen, or persist. Thank you for allowing us to be part of your care. Stand Alone Forms: Portal Information HPI General Mode of arrival: ambulatory. Date/Time Provider Initiated Documentation: 09/07/25 16:04. Limitations to Documentation: no limitations. Information obtained by: patient and old records reviewed. HPI Narrative: This is a 65-year-old female patient with a past medical history significant for hypertension, ureteral stone, presenting for evaluation of bruising on her finger. The patient reports that on she first noted bruising around the proximal phalanx of the right fourth digit. She cannot think of any specific incidents of trauma, did note that she was moving some things around that day, and did use the snowblower. She reports that she did not think much of it, did have some tenderness of the PIP, which has since resolved. She then noticed that the bruising seems to be spreading and is now down in the area of the fourth MCP. She has full range of motion of the hand, minimal tenderness, and preserved sensation and circulation distal to this injury. The patient does not take any anticoagulant medications but has been taking ibuprofen more frequently than typical given a recent diagnosis of renal stones. She denies excessive use, and has not had any other bruises, petechiae, nor history of excessive bleeding. Related Data Home Medications ?Medication ?Instructions ?Recorded ?Confirmed Albuterol Sulfate Hfa 2 puff inhalation Q6H PRN 12/22/12 08/11/25 atorvastatin 40 mg tablet (Lipitor) 40 mg PO DAILY 04/03/17 08/11/25 magnesium oxide 400 mg PO DAILY 08/07/18 08/11/25 omeprazole 40 mg capsule,delayed 40 mg PO DAILY 09/18/18 08/11/25 release potassium citrate 10 mEq (1,080 30 meq PO BID 04/30/19 08/11/25 mg) tablet,extended release meclizine 25 mg tablet 25 mg PO DAILY PRN 06/15/21 08/11/25 potassium chloride 20 mEq oral 20 meq PO DAILY 06/14/22 08/11/25 packet (Klor-Con) hydrochlorothiazide 25 mg tablet 25 mg PO QAM #90 tabs 06/16/23 08/11/25 cholecalciferol (vitamin D3) 1,250 1,250 mcg PO QWEEK 06/14/24 08/11/25 mcg (50,000 unit) capsule mecobalamin (vitamin B12) 1,000 1,000 mcg PO DAILY 06/14/24 08/11/25 mcg lozenges lisinopril 5 mg tablet 5 mg PO DAILY #90 tabs 06/27/25 08/11/25 metoprolol succinate 25 mg 25 mg PO DAILY #90 tabs 06/27/25 08/11/25 tablet,extended release 24 hr tamsulosin 0.4 mg capsule 0.4 mg PO DAILY #30 caps 08/11/25 Previous Rx's ?Medication ?Instructions ?Recorded hydrochlorothiazide 25 mg tablet 25 mg PO QAM #90 tabs 06/16/23 lisinopril 5 mg tablet 5 mg PO DAILY #90 tabs 06/27/25 metoprolol succinate 25 mg 25 mg PO DAILY #90 tabs 06/27/25 tablet,extended release 24 hr tamsulosin 0.4 mg capsule 0.4 mg PO DAILY #30 caps 08/11/25 Allergies Allergy/AdvReac Type Severity Reaction Status Date / Time diltiazem HCl (From Cardizem) Allergy Severe Anaphylaxsi Verified 09/07/25 16:14 s codeine (Codeine) AdvReac Mild nausea.vomi Verified 09/07/25 16:14 ting escitalopram oxalate (From AdvReac Mild nausea, Verified 09/07/25 16:14 Lexapro) vomiting meperidine HCl (From Demerol) AdvReac Mild nausea, Verified 09/07/25 16:14 vomiting morphine AdvReac Mild nausea, Verified 09/07/25 16:14 vomiting General Stated Complaint: Orthopedic ROSA: 4 Exam Narrative Exam Narrative: Gen: Awake and alert, in no apparent distress HEENT: Non-icteric sclera Neck: Supple Lungs: No apparent respiratory distress, normal respiratory effort. CV: Appears well perfused Abdomen: Non-distended MSK: Moves 4 extremities without apparent limitation in ROM. The right fourth digit has bruising from the PIP to the MCP, full range of motion without reproduction of pain, flexes and extends against resistance without difficulty. Preserved sensation and brisk capillary refill distal to this injury. The patient has a small bump on the palmar surface overlying the proximal phalanx, nontender, not fluctuant, no overlying redness, induration or other skin changes. Skin: Visualized skin without rashes, cyanosis. Neuro: Normal Gait, no obvious focal deficits or facial asymmetry. Speaks in full, clear sentences. Psych: Appropriate for situation. Course Vital Signs Vital signs: Vital Signs Temperature 36.6 C 09/07/25 16:10 Pulse 68 09/07/25 16:10 Respiratory Rate 16 09/07/25 16:10 Blood Pressure 172/75 H 09/07/25 16:10 Pulse Oximetry 98 09/07/25 16:10 Temperature 36.6 C 09/07/25 16:10 Temperature Source Oral 09/07/25 16:10 Pulse 68 09/07/25 16:10 Respiratory Rate 16 09/07/25 16:10 Blood Pressure 172/75 H 09/07/25 16:10 Pulse Oximetry 98 09/07/25 16:10 Oxygen Delivery Method Room Air 09/07/25 16:10 Oxygen Flow Rate 0 09/07/25 16:10 Medical Decision Making This is a 65-year-old female patient presenting for evaluation of a bruise on her right hand. Differential includes but is not limited to traumatic injuries including contusion, consider fracture or dislocation, though the patient has no specific traumatic etiology for those conditions. She has full strength and no evidence of ligamentous or tendon injury on my physical examination, nor neurovascular derangement. I have a low concern for coagulopathy in this patient with an isolated bruise and no history of excessive bleeding, though certainly NSAID use can predispose to easy bruising and bleeding. We will obtain an x-ray of the affected digit to rule out traumatic injuries. She does not require any intervention at this time for pain or swelling. - X-ray reviewed by myself, as well as the radiology report. There is some nonspecific periosteal thickening of the palmar aspect of the middle phalanx of digits 3, 4, and to a lesser extent 5. The etiology of this is not clear, though certainly may represent sequelae of injury that is healing. Given the patient's recent use of a snowblower, Palmar trauma from vibration was considered. I discussed these findings with the patient, and recommended conservative management of her ecchymosis. There is no fracture or dislocation that would require splinting, I counseled the patient on monitoring for excessive bruising and petechiae, as well as outpatient PCP follow-up. At this time, the patient has had a full medical evaluation and is safe for discharge to home. They are hemodynamically stable, ambulatory, and tolerating PO. They are understanding of the follow-up plan and return precautions. They left our facility without incident. Susan Ang MD [facility] All Active Problems (Updated 09/07/25 @ 17:02 by Susan Ang MD) Superficial bruising of finger (Acute) Right ureteral stone (Acute) Supraventricular tachycardia (Chronic) Medical History (Updated 09/07/25 @ 17:02 by Susan Ang MD) Irritable bowel syndrome HTN (hypertension) Hyperlipemia Asthma Surgical History H/O section Hx of cholecystectomy History of tonsillectomy Social History Smoking/Tobacco Use Status: Never Smoking risk assessment performed?: Yes Alcohol Intake: never Drug use: Never Substance use type: does not use Housing: apartment Do you feel safe in your relationship?: Yes
--- NOTE | 2025-09-07 16:55 | DI.VRAD_ITS ---
PROCEDURE INFORMATION: Exam: XR Right Hand Exam date and time: 09/07/2025 4:29 PM Age: 65 years old Clinical indication: Other: Unexplained bruising 4th pip and mcp - no trauma just increasing bruising TECHNIQUE: Imaging protocol: Radiologic exam of the right hand. Views: 3 or more views. COMPARISON: No relevant prior studies available. FINDINGS: Bones/joints: There is periosteal reaction seen along the proximal aspect of the middle phalanx at the palmar level involving the 3rd and 4th digits. There may be some mild 5th digit involvement. Soft tissues: There appears to be mild diffuse soft tissue swelling involving the digits. IMPRESSION: Palmar periosteal thickening involving the middle phalanges of the 3rd, 4th and apparently 5th digits. Etiology uncertain. Dictated and Authenticated by: Yolanda Villeda MD. Orderin [facility] Davis MD
== END 2025-09-07 17:07 | disposition home or self-care (01) ==
LOC: ER 17:16
PROVIDERS: Emergency Provider Emergency Medicine; PCP Student in an Organized Health Care Education/Training Program
DX: S60.041A Contusion of right ring finger without damage to nail, initial encounter (principal); X58.XXXA Exposure to other specified factors, initial encounter
CPT/HCPCS: 99283 ×2; 73130